=== PATIENT | male | born 1965 | race Caucasian/White ===

== ENCOUNTER 2017-11-13 17:48 | Inpatient (IN) | payer OTHER ==
--- NOTE | 2017-11-13 17:44 | CT ---
EXAMINATION TYPE: CT abdomen pelvis w con DATE OF EXAM: 11/13/2017 COMPARISON: NONE HISTORY: Pelvic pain CT DLP: 2020.1 mGycm Automated exposure control for dose reduction was used. TECHNIQUE: Helical acquisition of images was performed from the lung bases through the pelvis. CONTRAST: Performed with Oral Contrast and with IV Contrast, patient injected with 100 mL of Isovue 300. FINDINGS: Lung bases are clear. There is no pleural effusion. There is no pericardial effusion. There is a small pneumoperitoneum. There is air anterior to the liver. The spleen appears normal. Kelsey er shows no focal defect. Bile ducts are not dilated. Gallbladder appears normal. There is no evidenc e of pancreatic mass. There is no adrenal mass. Kidneys show satisfactory contrast opacification. The re is no hydronephrosis. Appendix appears normal. There is no intestinal wall thickening. There are m ultiple sigmoid diverticula. There is minimal fat stranding around the mid sigmoid colon. The bladder distends smoothly. There is no retroperitoneal adenopathy. There is no pelvic adenopathy. There is p osterior disc herniation at L3-4 with mild encroachment on the spinal canal. There is developmentally adequate canal. IMPRESSION: THERE IS MILD PNEUMOPERITONEUM. THERE IS SIGMOID MODERATE DIVERTICULOSIS THAT COULD BE THE CAUSE OF T HE FREE AIR. THERE IS PROBABLY MILD DIVERTICULITIS. NORMAL APPENDIX. THIS EXAM WAS DISCUSSED WITH DR. Syed AT 5:40 PM.
[2017-11-13] MEDS ORDERED: PIPERACILLIN-TAZOBACTAM 3.375 GM in DEXTROSE/WATER 1 50ML.BAG IVPB STA (18:13)
[2017-11-13] MEDS ORDERED: ONDANSETRON 4 MG/2 ML VIAL IVP STA (18:13)
[2017-11-13] MEDS ORDERED: MORPHINE SULFATE 2 MG/ML SYRINGE IVP STA (18:13)
[2017-11-13] MEDS ORDERED: SODIUM CHLORIDE 0.9% 1,000 ML IV STA (18:13)
[2017-11-13] MEDS ORDERED: ONDANSETRON 4 MG/2 ML VIAL IVP PRN (18:34)
[2017-11-13] MEDS ORDERED: NALOXONE 0.4 MG/ML 1 ML VIAL IV PRN (18:34)
--- NOTE | 2017-11-13 18:38 | ED ---
General Adult HPI - General Chief complaint: Abdominal Pain Time Seen by Provider: 11/13/17 18:04 Source: patient, RN notes reviewed Mode of arrival: wheelchair Limitations: no limitations - History of Present Illness Initial comments: Patient 52-year-old male presented to the emergency room today with chief complaint of lower pain over the last 4 days. Patient's metabolic family doctor who did order an outpatient CT. Patient was transferred by CT to the emergency room for diverticulitis with free air that was found on CT. Patient states pain increased last night. He denies any bites or symptoms. Patient denies any recent fever, chills, shortness of breath, chest pain, back pain, nausea or vomiting, numbness or tingling, dysuria or hematuria, constipation or diarrhea, headaches or visual changes, or any other complaints. - Related Data Home Medications Medication Instructions Recorded Confirmed Atenolol [Tenormin] 25 mg PO BID 11/13/17 11/13/17 traMADol HCL [Ultram] 50 mg PO TID PRN 11/13/17 11/13/17 Allergies Allergy/AdvReac Type Severity Reaction Status Date / Time No Known Allergies Allergy Verified 11/13/17 18:02 Review of Systems ROS Statement: Those systems with pertinent positive or pertinent negative responses have been documented in the HPI. ROS Other: All systems not noted in ROS Statement are negative. Past Medical History Past Medical History: Hypertension History of Any Multi-Drug Resistant Organisms: None Reported Additional Past Surgical History / Comment(s): knee replacement, Inguinal Hernia. Past Psychological History: No Psychological Hx Reported Smoking Status: Light tobacco smoker Past Alcohol Use History: None Reported General Exam - General Exam Comments Initial Comments: General: The patient is awake and alert, in no distress, and does not appear acutely ill. Eye: Pupils are equal, round and reactive to light, extra-ocular movements are intact. No nystagmus. There is normal conjunctiva bilaterally. No signs of icterus. Ears, nose, mouth and throat: There are moist mucous membranes and no oral lesions. Neck: The neck is supple, there is no tenderness or JVD. Cardiovascular: There is a regular rate and rhythm. No murmur, rub or gallop is appreciated. Respiratory: Lungs are clear to auscultation, respirations are non-labored, breath sounds are equal. No wheezes, stridor, rales, or rhonchi. Gastrointestinal: Abdomen soft on palpation. Mild tenderness to left upper and lower quadrants. No rebound tenderness. No guarding. No CVA tenderness. Musculoskeletal: Normal ROM, no tenderness. Strength 5/5. Sensation intact. Neurological: A&O x 3. CN II-XII intact, There are no obvious motor or sensory deficits. Coordination appears grossly intact. Speech is normal. Skin: Skin is warm and dry and no rashes or lesions are noted. Psychiatric: Cooperative, appropriate mood & affect, normal judgment. Limitations: no limitations Course Vital Signs 11/13/17 17:57 Temperature 99.5 F Pulse Rate 70 Respiratory 16 Rate Blood Pressure 185/86 O2 Sat by Pulse 98 Oximetry Medical Decision Making - Medical Decision Making Patient's CT abdomen and pelvis was performed outpatient showing evidence for diverticulitis with a small perforation. Results were discussed with patient. Case discussed with attending physician Dr. Laura did discuss case with physician Dr. Jacob and also surgeon semiconductor technician Dr. baez. Patient started on antibiotics of Zosyn here in the emergency room. will be admitted to the hospital. Patient family are aware the plan. Disposition Clinical Impression: Diverticulitis, Pneumoperitoneum Disposition: ADMITTED IP TO THIS HOSP Condition: Stable Is patient prescribed a controlled substance at d/c from ED?: No Referrals: Pranav Bains DO [Primary Care Provider] - 1-2 days Time of Disposition: 18:45
[2017-11-13 19:01] LABS: Basophils % (A) 0 %; Eosinophils # (A) 0.1 k/uL (0-0.7); Eosinophils % (A) 1 %; HCT 42.7 % (39.0-53.0); Lymphocytes # (A) 1.4 k/uL (1.0-4.8); Lymphocytes % (A) 12 %; MCHC 35.2 g/dL (31.0-37.0); MCV 88.2 fL (80.0-100.0); Mean Platelet Volume 7.4; Monocytes # (A) 0.6 k/uL (0-1.0); Monocytes % (A) 5 %; Neutrophils % (A) 81 %; Platelet Count 171 k/uL (150-450); RBC 4.84 m/uL (4.30-5.90); RDW 13.9 % (11.5-15.5); WBC 11.1 k/uL (3.8-10.6)
[2017-11-13 19:05] LABS: Appearance,Urine Clear (Clear); Bilirubin,Urine Negative (Negative); Blood,Urine Negative (Negative); Color,Urine Colorless; Glucose,Urine (UA) Negative (Negative); Ketones,Urine Negative (Negative); Leukocyte Esterase,Urine Negative (Negative); Nitrite,Urine Negative (Negative); PH, Urine 6.5 (5.0-8.0); Protein,Urine Negative (Negative); Specific Gravity,Urine 1.039 (1.001-1.035); Urobilinogen,Urine <2.0 mg/dL (<2.0)
[2017-11-13 19:10] LABS: ALT 43 U/L (21-72); AST 24 U/L (17-59); Albumin 4.3 g/dL (3.5-5.0); Alkaline Phosphatase 56 U/L (38-126); Anion Gap 11 mmol/L; Blood Urea Nitrogen 15 mg/dL (9-20); Calcium 9.5 mg/dL (8.4-10.2); Carbon Dioxide 24 mmol/L (22-30); Chloride 104 mmol/L (98-107); Glucose 74 mg/dL (74-99); Potassium 4.6 mmol/L (3.5-5.1); Sodium 139 mmol/L (137-145); Total Bilirubin 1.4 mg/dL (0.2-1.3); Total Protein 6.6 g/dL (6.3-8.2)
[2017-11-13 19:20] LABS: INR 1.1 (<1.2); Prothrombin Time 10.7 sec (9.0-12.0)
[2017-11-13] MEDS: MORPHINE SULFATE 2 MG/ML SYRINGE IV PRN ×2 (20:54→23:53)
[2017-11-13] MEDS: ACETAMINOPHEN TAB 325 MG TAB PO PRN (22:24)
[2017-11-13] MEDS: PIPERACILLIN-TAZOBACTAM 3.375 GM in DEXTROSE/WATER 1 50ML.BAG IVPB SCH (23:52)
[2017-11-14] MEDS ORDERED: HYDROcodone/APAP 7.5-325MG 1 EACH TAB ONE (05:00)
[2017-11-14] MEDS ORDERED: MORPHINE SULFATE 2 MG/ML SYRINGE ONE ×2 (05:00→08:50)
[2017-11-14] MEDS ORDERED: ACETAMINOPHEN TAB 325 MG TAB ONE (05:00)
[2017-11-14 08:40] LABS: Basophils % (A) 0 %; Eosinophils # (A) 0.1 k/uL (0-0.7); Eosinophils % (A) 1 %; HCT 43.1 % (39.0-53.0); HGB 14.6 gm/dL (13.0-17.5); Lymphocytes # (A) 1.4 k/uL (1.0-4.8); Lymphocytes % (A) 13 %; MCH 29.7 pg (25.0-35.0); MCHC 33.8 g/dL (31.0-37.0); Mean Platelet Volume 7.5; Monocytes # (A) 0.7 k/uL (0-1.0); Monocytes % (A) 6 %; Neutrophils # (A) 8.6 k/uL (1.3-7.7); Neutrophils % (A) 79 %; Platelet Count 147 k/uL (150-450); RBC 4.89 m/uL (4.30-5.90); RDW 13.8 % (11.5-15.5); WBC 10.9 k/uL (3.8-10.6)
[2017-11-14] MEDS ORDERED: MELOXICAM 7.5 MG TAB ONE (08:50)
[2017-11-14] MEDS ORDERED: amLODIPine 5 MG TAB ONE (08:50)
[2017-11-14] MEDS ORDERED: FUROSEMIDE 40 MG TAB ONE (08:50)
[2017-11-14] MEDS ORDERED: ASPIRIN 325 MG TAB ONE (08:50)
[2017-11-14] MEDS ORDERED: LOSARTAN 25 MG TAB ONE (08:50)
[2017-11-14] MEDS ORDERED: ASCORBIC ACID 500 MG TAB ONE (08:50)
[2017-11-14] MEDS ORDERED: FLUoxetine HCL 20 MG CAP ONE (08:50)
[2017-11-14] MEDS ORDERED: PREGABALIN 75 MG CAP ONE (08:50)
[2017-11-14 09:27] LABS: Albumin 3.9 g/dL (3.5-5.0); Calcium 8.9 mg/dL (8.4-10.2); Potassium 4.3 mmol/L (3.5-5.1); Total Bilirubin 1.8 mg/dL (0.2-1.3); Total Protein 6.1 g/dL (6.3-8.2)
[2017-11-14] MEDS: PIPERACILLIN-TAZOBACTAM 3.375 GM in DEXTROSE/WATER 1 50ML.BAG IVPB SCH ×3 (10:54→23:22)
--- NOTE | 2017-11-14 11:23 | P.GSCN ---
History of Present Illness Consult date: 11/14/17 History of present illness: Was a 52-year-old male presents with a chief complaint of left lower quadrant suprapubic abdominal pain. This began on Sunday. He's never had pain like this before. He denies any fevers or chills. His last bowel movement was 2 days ago and was a normal bowel movement with no blood. He denies any nausea or vomiting. His past surgical history of right inguinal hernia repair. He has high blood pressure but no other medical comorbidities. He's never had a colonoscopy before. Past Medical History Past Medical History: Hypertension Additional Past Medical History / Comment(s): arthritis, djd History of Any Multi-Drug Resistant Organisms: None Reported Additional Past Surgical History / Comment(s): lt knee replacement, rt Inguinal Hernia. one upper dental implant. Past Anesthesia/Blood Transfusion Reactions: No Reported Reaction Smoking Status: Light tobacco smoker - Past Family History Mother Family Medical History: Asthma, Cancer, COPD, GERD/Reflux, Hypertension Additional Family Medical History / Comment(s): diverticulitis, squamous and melaonoma skin cancers Father Family Medical History: Cancer, Hypertension, Prostate Disorder, Renal Disease Additional Family Medical History / Comment(s): prostate cancer, aaa, heart disease Medications and Allergies Home Medications Medication Instructions Recorded Confirmed Type Atenolol [Tenormin] 25 mg PO BID 11/13/17 11/13/17 History traMADol HCL [Ultram] 50 mg PO TID PRN 11/13/17 11/13/17 History Allergies Allergy/AdvReac Type Severity Reaction Status Date / Time No Known Allergies Allergy Verified 11/13/17 18:02 Surgical - Exam Osteopathic Statement: *. No significant issues noted on an osteopathic structural exam other than those noted in the History and Physical/Consult. Vital Signs Temp Pulse Resp BP Pulse Ox 99.5 F 70 16 185/86 98 11/13/17 17:57 11/13/17 17:57 11/13/17 17:57 11/13/17 17:57 11/13/17 17:57 - General well developed, well nourished, no distress - Neck trachea midline - Respiratory normal expansion, normal respiratory effort - Cardiovascular Rhythm: regular - Abdomen Soft nondistended tender to palpation in the left lower and suprapubic area no rebound no rigidity no guarding - Neurologic normal coordination, normal sensation - Psychiatric oriented to time, oriented to person, oriented to place Results - Labs 11/14/17 06:00 11/13/17 18:48 Abnormal Lab Results - Last 24 Hours (Table) 11/13/17 11/13/17 11/13/17 Range/Units 18:48 18:48 18:48 WBC 11.1 H (3.8-10.6) k/uL Plt Count (150-450) k/uL Neutrophils # 9.0 H (1.3-7.7) k/uL Plasma Lactic Acid Raúl 2.1 H* (0.7-2.0) mmol/L Total Bilirubin 1.4 H (0.2-1.3) mg/dL Ur Specific [place] (1.001-1.035) 11/13/17 11/14/17 Range/Units 18:48 06:00 WBC 10.9 H (3.8-10.6) k/uL Plt Count 147 L (150-450) k/uL Neutrophils # 8.6 H (1.3-7.7) k/uL Plasma Lactic Acid Raúl (0.7-2.0) mmol/L Total Bilirubin (0.2-1.3) mg/dL Ur Specific [place] 1.039 H (1.001-1.035) Microbiology - Last 24 Hours (Table) 11/13/17 18:48 Urine Culture - Preliminary Urine,Clean Catch Diabetes panel 11/13/17 Range/Units 18:48 Sodium 139 (137-145) mmol/L Potassium 4.6 (3.5-5.1) mmol/L Chloride 104 (98-107) mmol/L Carbon Dioxide 24 (22-30) mmol/L BUN 15 (9-20) mg/dL Creatinine 1.00 (0.66-1.25) mg/dL Glucose 74 (74-99) mg/dL Calcium 9.5 (8.4-10.2) mg/dL AST 24 (17-59) U/L ALT 43 (21-72) U/L Alkaline Phosphatase 56 (38-126) U/L Total Protein 6.6 (6.3-8.2) g/dL Albumin 4.3 (3.5-5.0) g/dL Calcium panel 11/13/17 Range/Units 18:48 Calcium 9.5 (8.4-10.2) mg/dL Albumin 4.3 (3.5-5.0) g/dL Pituitary panel 11/13/17 Range/Units 18:48 Sodium 139 (137-145) mmol/L Potassium 4.6 (3.5-5.1) mmol/L Chloride 104 (98-107) mmol/L Carbon Dioxide 24 (22-30) mmol/L BUN 15 (9-20) mg/dL Creatinine 1.00 (0.66-1.25) mg/dL Glucose 74 (74-99) mg/dL Calcium 9.5 (8.4-10.2) mg/dL Adrenal panel 11/13/17 Range/Units 18:48 Sodium 139 (137-145) mmol/L Potassium 4.6 (3.5-5.1) mmol/L Chloride 104 (98-107) mmol/L Carbon Dioxide 24 (22-30) mmol/L BUN 15 (9-20) mg/dL Creatinine 1.00 (0.66-1.25) mg/dL Glucose 74 (74-99) mg/dL Calcium 9.5 (8.4-10.2) mg/dL Total Bilirubin 1.4 H (0.2-1.3) mg/dL AST 24 (17-59) U/L ALT 43 (21-72) U/L Alkaline Phosphatase 56 (38-126) U/L Total Protein 6.6 (6.3-8.2) g/dL Albumin 4.3 (3.5-5.0) g/dL Assessment and Plan Assessment: Diverticulitis Plan: Patient has diverticulitis he did have some free air on the CT scan however he is not peritoneal at this time. Plan will be to continue nothing by mouth, IV antibiotics, and bowel rest. We'll continue to monitor his progress. When his abdominal pain resolves plan will be to start clear liquid diet and advance as tolerated. No plans for surgical intervention at this time. He will need to follow-up with me in 6 weeks for a colonoscopy once the diverticulitis has resolved.
[2017-11-14] MEDS: ACETAMINOPHEN TAB 325 MG TAB PO PRN ×2 (11:58→22:29)
--- NOTE | 2017-11-14 13:27 | P.HPIM ---
History of Present Illness H&P Date: 11/14/17 Chief Complaint: Abdominal pain. This is a 52-year-old male one of Dr. Bains with a previous medical history significant for hypertension and hypertensive cardio vascular disease, history of diverticulosis, patient stated that he was in his usual state of health about a week ago when he developed to have an increased abdominal pain located in the right lower quadrant associated with nausea but no vomiting patient stated that he has been eating hands fall of popcorn is over the last few days along with large amount of strawberries and he ended up going to the emergency department at [facility] yesterday because of severe abdominal pain he had a computed tomography scan that showed significant diverticulitis along with a free air patient does not have any signs of any peritoneal irritation at this point in time. And because of that the patient was started on IV antibiotic he was placed on nothing per mouth was seen in consultation by general surgery was recommended to keep the patient on nothing per mouth and continued IV antibiotic and bowel rest for now follow the patient on regular basis. Review of Systems Constitutional: Denies anorexia, Denies chronic headaches, Denies lethargy, Denies weight gain, Denies weight loss Eyes: denies blurred vision, denies bulging eye, denies decreased vision Ears: deny: decreased hearing Ears, nose, mouth and throat: Denies dysphagia, Denies neck lump Cardiovascular: Reports high blood pressure, Denies chest pain, Denies dyspnea on exertion, Denies phlebitis, Denies rapid heart beat, Denies shortness of breath Respiratory: Denies congestion, Denies cough with sputum, Denies home oxygen, Denies sleep apnea, Denies snoring, Denies wheezing Gastrointestinal: Reports abdominal pain, Reports belching, Reports nausea, Denies excessive gas, Denies heartburn, Denies melena, Denies vomiting Genitourinary: Denies discharge, Denies dysuria, Denies nocturia Musculoskeletal: Denies myalgias Musculoskeletal: absent: ankle pain, ankle stiffness, ankle swelling, elbow pain , elbow stiffness, elbow swelling, foot pain, foot stiffness, foot swelling, hand pain, hand stiffness, hand swelling, hip pain, hip stiffness, hip swelling , knee pain, knee stiffness, knee swelling, shoulder pain, shoulder stiffness, shoulder swelling, wrist pain, wrist stiffness, wrist swelling Integumentary: Denies pruritus, Denies rash Neurological: Denies numbness, Denies weakness Psychiatric: Denies anxiety, Denies depression Endocrine: Denies fatigue, Denies weight change Past Medical History Past Medical History: Hypertension Additional Past Medical History / Comment(s): arthritis, djd History of Any Multi-Drug Resistant Organisms: None Reported Additional Past Surgical History / Comment(s): lt knee replacement, rt Inguinal Hernia. one upper dental implant. Past Anesthesia/Blood Transfusion Reactions: No Reported Reaction Smoking Status: Light tobacco smoker (Patient smokes cigar once in a while about 1 every 2 days.) Past Alcohol Use History: Occasional - Past Family History Mother Family Medical History: Asthma, Cancer, COPD, GERD/Reflux, Hypertension Additional Family Medical History / Comment(s): diverticulitis, squamous and melaonoma skin cancers Father Family Medical History: Cancer, Hypertension, Prostate Disorder, Renal Disease Additional Family Medical History / Comment(s): prostate cancer, aaa, heart disease Sister(s) Family Medical History: No Reported History (Patient has one sister no major medical problems) Son(s) Family Medical History: No Reported History (Patient has 2 sons no major problems) Daughter(s) Family Medical History: No Reported History (Patient has one daughter no major medical problems.) Medications and Allergies Home Medications Medication Instructions Recorded Confirmed Type Atenolol [Tenormin] 25 mg PO BID 11/13/17 11/13/17 History traMADol HCL [Ultram] 50 mg PO TID PRN 11/13/17 11/13/17 History Allergies Allergy/AdvReac Type Severity Reaction Status Date / Time No Known Allergies Allergy Verified 11/13/17 18:02 Physical Exam Vitals: Vital Signs Temp Pulse Pulse Resp BP BP Pulse Ox 11/13/17 23:00 99.5 F 77 20 145/82 97 11/13/17 21:15 99.4 F 11/13/17 20:20 99.8 F H 76 20 152/86 98 11/13/17 20:01 81 18 157/83 97 11/13/17 19:06 98.9 F 80 18 153/82 100 11/13/17 17:57 99.5 F 70 16 185/86 98 Intake and Output 11/13/17 11/14/17 11/14/17 22:59 06:59 14:59 Other: Voiding Method Toilet # Voids 2 Weight 120.202 kg - Constitutional General appearance: average body habitus, mild distress - EENT Eyes: anicteric sclerae, EOMI, PERRLA, no ptosis, no scleral icterus, normal appearance ENT: hearing grossly normal, NA/AT, normal oropharynx, no thrush Ears: bilateral: normal - Neck Neck: no lymphadenopathy, normal ROM, no rigidity, no stridor, no thyromegaly Carotids: bilateral: upstroke normal Thyroid: bilateral: normal size - Respiratory Respiratory: bilateral: diminished, negative: dullness, rales, rhonchi, wheezing , prolonged expiration - Cardiovascular Rhythm: regular Heart sounds: normal: S1, S2 Abnormal Heart Sounds: no systolic murmur, no S3 Gallop, no S4 Gallop - Gastrointestinal General gastrointestinal: normal bowel sounds, soft, tenderness (Right lower quadrant.) - Integumentary Integumentary: normal, normal turgor - Neurologic Neurologic: CNII-XII intact - Musculoskeletal Musculoskeletal: gait normal, strength equal bilaterally - Psychiatric Psychiatric: A&O x's 3, appropriate affect, intact judgment & insight Results CBC & Chem 7: 11/14/17 06:00 11/13/17 18:48 Labs: Abnormal Lab Results - Last 24 Hours (Table) 11/13/17 11/13/17 11/13/17 Range/Units 18:48 18:48 18:48 WBC 11.1 H (3.8-10.6) k/uL Plt Count (150-450) k/uL Neutrophils # 9.0 H (1.3-7.7) k/uL Plasma Lactic Acid Raúl 2.1 H* (0.7-2.0) mmol/L Total Bilirubin 1.4 H (0.2-1.3) mg/dL Ur Specific [place] (1.001-1.035) 11/13/17 11/14/17 Range/Units 18:48 06:00 WBC 10.9 H (3.8-10.6) k/uL Plt Count 147 L (150-450) k/uL Neutrophils # 8.6 H (1.3-7.7) k/uL Plasma Lactic Acid Raúl (0.7-2.0) mmol/L Total Bilirubin (0.2-1.3) mg/dL Ur Specific [place] 1.039 H (1.001-1.035) Microbiology - Last 24 Hours (Table) 11/13/17 18:48 Urine Culture - Preliminary Urine,Clean Catch Thrombosis Risk Factor Assmnt - DVT/VTE Prophylaxis DVT/VTE Prophylaxis: Mechanical Prophylaxis ordered - Choose All That Apply Any of the Below Risk Factors Present?: Yes Each Factor Represents 1 point: Age 41-60 years, Obesity (BMI >25) Other Risk Factors: No Other congenital or acquired thrombophilia - If yes, enter type in comment: No Thrombosis Risk Factor Assessment Total Risk Factor Score: 2 Thrombosis Risk Factor Assessment Level: Low Risk Assessment and Plan Assessment: Assessment and plan: 1. Acute diverticulitis with free air. Continue bowel rest, continue nothing by mouth, continue IV antibiotic in the form of Zosyn 3.375 g IV piggyback every 6 hours, general surgery consultation appreciated, continue to monitor the patient very closely continue morphine for minute gram IV push every 4 hours as needed for pain control. 2. Hypertension and hypertensive cardiovascular disease. Continue patient on atenolol 25 mg orally twice every day. 3. DVT prophylaxis. Lateral knee-high PABOL hose and heparin 5000 units subcutaneously every 12 hours 4. GI prophylaxis. Protonix 40 mg IV push every 24 hours. 5. Admit to inpatient. Estimate a length of stay 2 midnights. 6. Patient is full code.
[2017-11-14] MEDS: MORPHINE SULFATE 2 MG/ML SYRINGE IV PRN ×3 (13:58→23:22)
[2017-11-14] MEDS: HEPARIN SODIUM,PORCINE 5,000 UNIT/ML 1 ML VIAL SQ SCH (21:45)
[2017-11-14] MEDS: ATENOLOL 25 MG TAB PO SCH (21:45)
[2017-11-15 08:03] LABS: Basophils % (A) 0 %; Eosinophils # (A) 0.1 k/uL (0-0.7); Eosinophils % (A) 1 %; HCT 42.4 % (39.0-53.0); HGB 14.7 gm/dL (13.0-17.5); Lymphocytes # (A) 1.1 k/uL (1.0-4.8); Lymphocytes % (A) 12 %; MCH 30.3 pg (25.0-35.0); MCHC 34.6 g/dL (31.0-37.0); MCV 87.5 fL (80.0-100.0); Mean Platelet Volume 7.6; Monocytes # (A) 0.6 k/uL (0-1.0); Monocytes % (A) 7 %; Neutrophils # (A) 7.3 k/uL (1.3-7.7); Neutrophils % (A) 79 %; Platelet Count 155 k/uL (150-450); RBC 4.85 m/uL (4.30-5.90); RDW 13.5 % (11.5-15.5); WBC 9.2 k/uL (3.8-10.6)
[2017-11-15] MEDS: HEPARIN SODIUM,PORCINE 5,000 UNIT/ML 1 ML VIAL SQ SCH ×2 (08:22→21:32)
[2017-11-15] MEDS: ATENOLOL 25 MG TAB PO SCH ×2 (08:22→21:49)
[2017-11-15] MEDS: PANTOPRAZOLE 40 MG/10 ML VIAL IVP SCH (08:22)
[2017-11-15] MEDS: PIPERACILLIN-TAZOBACTAM 3.375 GM in DEXTROSE/WATER 1 50ML.BAG IVPB SCH ×3 (08:22→23:01)
[2017-11-15 08:29] LABS: ALT 29 U/L (21-72); AST 19 U/L (17-59); Albumin 3.8 g/dL (3.5-5.0); Alkaline Phosphatase 51 U/L (38-126); Anion Gap 12 mmol/L; Blood Urea Nitrogen 15 mg/dL (9-20); Calcium 8.9 mg/dL (8.4-10.2); Carbon Dioxide 24 mmol/L (22-30); Chloride 101 mmol/L (98-107); Glucose 86 mg/dL (74-99); Magnesium 2.2 mg/dL (1.6-2.3); Potassium 4.4 mmol/L (3.5-5.1); Sodium 137 mmol/L (137-145); Total Bilirubin 1.7 mg/dL (0.2-1.3)
[2017-11-15] MEDS: MORPHINE SULFATE 2 MG/ML SYRINGE IV PRN ×2 (08:33→19:48)
[2017-11-15] MEDS: ACETAMINOPHEN TAB 325 MG TAB PO PRN ×2 (11:34→21:49)
--- NOTE | 2017-11-15 12:50 | P.PN ---
Subjective This is a 52-year-old male one of Dr. Bains with a previous medical history significant for hypertension and hypertensive cardio vascular disease, history of diverticulosis, patient stated that he was in his usual state of health about a week ago when he developed to have an increased abdominal pain located in the right lower quadrant associated with nausea but no vomiting patient stated that he has been eating hands fall of popcorn over the last few days along with large amount of strawberries and he ended up going to the emergency department at [facility] yesterday because of severe abdominal pain he had a computed tomography scan that showed significant diverticulitis along with a free air patient does not have any signs of any peritoneal irritation at this point in time. And because of that the patient was started on IV antibiotic he was placed on nothing per mouth was seen in consultation by general surgery was recommended to keep the patient on nothing per mouth and continued IV antibiotic and bowel rest for now follow the patient on regular basis. 11/15: Patient evaluated today, he continues on Zosyn. He is nothing by mouth and on bowel rest for now. Repeat abdominal x-ray ordered and is pending. Surgery on consult. Objective - Vital Signs Vital signs: Vital Signs Temp 99.0 F 11/15/17 06:01 Pulse 83 11/15/17 08:00 Resp 18 11/15/17 08:00 BP 159/105 11/15/17 06:01 Pulse Ox 96 11/15/17 06:01 Intake & Output 11/14/17 11/15/17 11/15/17 18:59 06:59 18:59 Intake Total 850 Balance 850 Intake: Intake, IV Titration 850 Amount Piperacillin-Tazobactam 3 50 .375 gm In Dextrose/Water 1 50ml.bag @ 12.5 mls/hr IVPB Q8HR JOSEFINA Rx#: [id number] Sodium Chloride 0.9% 1, 800 000 ml @ 100 mls/hr IV . Q10H STA Rx#:[id number] Other: Voiding Method Toilet Toilet # Voids 2 2 - Exam - Constitutional General appearance: average body habitus, mild distress - EENT Eyes: anicteric sclerae, EOMI, PERRLA, no ptosis, no scleral icterus, normal appearance ENT: hearing grossly normal, NA/AT, normal oropharynx, no thrush Ears: bilateral: normal - Neck Neck: no lymphadenopathy, normal ROM, no rigidity, no stridor, no thyromegaly Carotids: bilateral: upstroke normal Thyroid: bilateral: normal size - Respiratory Respiratory: bilateral: diminished, negative: dullness, rales, rhonchi, wheezing , prolonged expiration - Cardiovascular Rhythm: regular Heart sounds: normal: S1, S2 Abnormal Heart Sounds: no systolic murmur, no S3 Gallop, no S4 Gallop - Gastrointestinal General gastrointestinal: normal bowel sounds, soft, tenderness (Right lower quadrant.) - Integumentary Integumentary: normal, normal turgor - Neurologic Neurologic: CNII-XII intact - Musculoskeletal Musculoskeletal: gait normal, strength equal bilaterally - Psychiatric Psychiatric: A&O x's 3, appropriate affect, intact judgment & insight - Labs CBC & Chem 7: 11/15/17 07:38 11/15/17 07:38 Labs: Abnormal Lab Results - Last 24 Hours (Table) 11/14/17 11/15/17 Range/Units 07:32 07:38 Total Bilirubin 1.8 H 1.7 H (0.2-1.3) mg/dL Total Protein 6.1 L 6.0 L (6.3-8.2) g/dL Microbiology - Last 24 Hours (Table) 11/13/17 18:48 Urine Culture - Final Urine,Clean Catch 11/13/17 18:48 Blood Culture - Preliminary Blood No Growth after 24 hours Assessment and Plan Plan: 1. Acute diverticulitis with free air. Continue bowel rest, continue nothing by mouth, continue IV antibiotic in the form of Zosyn 3.375 g IV piggyback every 6 hours, general surgery consultation appreciated, continue to monitor the patient very closely continue morphine for minute gram IV push every 4 hours as needed for pain control. 2. Hypertension and hypertensive cardiovascular disease. Continue patient on atenolol 25 mg orally twice every day. 3. DVT prophylaxis. Lateral knee-high PABLO hose and heparin 5000 units subcutaneously every 12 hours 4. GI prophylaxis. Protonix 40 mg IV push every 24 hours. 5. Admit to inpatient. Estimate a length of stay 2 midnights. 6. Patient is full code. The above impression and plan of care have been discussed and directed by signing physician. Radha Lozada nurse practitioner acting as scribe for signing physician.
--- NOTE | 2017-11-15 13:16 | XR ---
2 view abdomen HISTORY: Colitis, abdominal pain 2 views of the abdomen submitted on 4 images and correlated to prior CT abdomen pelvis 11/13/2017 There is contrast material throughout the colon. Pneumoperitoneum is present, air is noted beneath th e right hemidiaphragm on upright exam the appendix fills with contrast and is normal. No bowel obstru ction. Diverticular change in the sigmoid colon. IMPRESSION: Pneumoperitoneum, report documented referring clinician notification 11/13/2017 on prior [address] T. Diverticulosis.
--- NOTE | 2017-11-16 08:33 | P.PN ---
<Ximena Valentin - Last Filed: 11/16/17 08:27> Subjective Progress Note Date: 11/16/17 52-year-old male seen and examined. Up ambulating in the room. Patient states abdominal pain has resolved tolerating clear liquid. No labs pending temp this morning 98.4. Temp maxed at 99.9 yesterday abdomen soft nondistended Objective - Vital Signs Vital signs: Vital Signs Temp 98.4 F 11/16/17 06:00 Pulse 72 11/16/17 06:00 Resp 16 11/16/17 06:00 BP 165/90 11/16/17 06:00 Pulse Ox 98 11/16/17 06:00 Intake & Output 11/15/17 11/16/17 11/16/17 18:59 06:59 18:59 Other: Voiding Method Toilet Toilet # Voids 3 2 - Exam Physical exam 52-year-old seen pleasant cooperative states abdominal pain is resolved up ambulating in the room tolerating clear liquids Lungs adequate air movement bilaterally and room air Heart S1-S2 audible regular Abdomen soft nontender nondistended bowel tones present no nausea no vomiting Extremities no edema - Labs CBC & Chem 7: 11/15/17 07:38 11/15/17 07:38 Labs: Abnormal Lab Results - Last 24 Hours (Table) 11/15/17 Range/Units 07:38 Total Bilirubin 1.7 H (0.2-1.3) mg/dL Total Protein 6.0 L (6.3-8.2) g/dL Microbiology - Last 24 Hours (Table) 11/14/17 22:52 Blood Culture - Preliminary Blood No Growth after 24 hours 11/13/17 18:48 Blood Culture - Preliminary Blood No Growth after 48 hours Assessment and Plan Assessment: Impression Present on admission abdominal pain with a CAT scan of the abdomen pelvis showing diverticulitis with some free air Plan Advanced to a full liquid diet Plan on follow-up in 6 weeks for colonoscopy once the diverticulitis has resolved From a surgical perspective is felt to be appropriate to proceed with a discharge today defer to the timing to the attending Dietitian to provide information on the diverticulum diet Augmentin 1 twice a day for 7 days as ordered The above impression and plan of care have been discussed and directed by signing physician. Ximena Valentin nurse practitioner acting as scribe for signing physician. <Harriston,Dewey J - Last Filed: 11/17/17 12:39> Objective - Vital Signs Vital signs: Vital Signs Temp 99.1 F 11/17/17 07:00 Pulse 70 11/17/17 07:00 Resp 18 11/17/17 07:00 BP 175/92 11/17/17 07:00 Pulse Ox 97 11/17/17 07:00 Intake & Output 11/16/17 11/17/17 11/17/17 18:59 06:59 18:59 Intake Total 200 550 Balance 200 550 Weight 120.202 kg 120.202 kg Intake: Oral 200 550 Other: Voiding Method Toilet # Voids 2 1 # Bowel Movements 4 - Labs CBC & Chem 7: 11/17/17 07:48 11/17/17 07:48 Labs: Microbiology - Last 24 Hours (Table) 11/14/17 22:52 Blood Culture - Preliminary Blood No Growth after 48 hours 11/13/17 18:48 Blood Culture - Preliminary Blood No Growth after 72 hours
[2017-11-16] MEDS: PIPERACILLIN-TAZOBACTAM 3.375 GM in DEXTROSE/WATER 1 50ML.BAG IVPB SCH ×3 (09:20→23:20)
[2017-11-16] MEDS: ATENOLOL 25 MG TAB PO SCH ×2 (09:21→20:45)
[2017-11-16] MEDS: HEPARIN SODIUM,PORCINE 5,000 UNIT/ML 1 ML VIAL SQ SCH ×2 (09:21→20:46)
[2017-11-16] MEDS: PANTOPRAZOLE 40 MG/10 ML VIAL IVP SCH (09:21)
[2017-11-16 11:03] VITALS: BMI 36.9
--- NOTE | 2017-11-16 12:20 | P.PN ---
Subjective Progress Note Date: 11/16/17 This is a 52-year-old male one of Dr. Bains with a previous medical history significant for hypertension and hypertensive cardio vascular disease, history of diverticulosis, patient stated that he was in his usual state of health about a week ago when he developed to have an increased abdominal pain located in the right lower quadrant associated with nausea but no vomiting patient stated that he has been eating hands fall of popcorn over the last few days along with large amount of strawberries and he ended up going to the emergency department at [facility] yesterday because of severe abdominal pain he had a computed tomography scan that showed significant diverticulitis along with a free air patient does not have any signs of any peritoneal irritation at this point in time. And because of that the patient was started on IV antibiotic he was placed on nothing per mouth was seen in consultation by general surgery was recommended to keep the patient on nothing per mouth and continued IV antibiotic and bowel rest for now follow the patient on regular basis. 11/15: Patient evaluated today, he continues on Zosyn. He is nothing by mouth and on bowel rest for now. Repeat abdominal x-ray ordered and is pending. Surgery on consult. 11/16: Doing better today had an x-ray yesterday still showing pneumoperitoneum, has no peritoneal sign he has no nausea or vomiting tolerating clear liquid while he would be advanced to full liquid diet hopefully we'll switch to soft diet tomorrow morning. Objective - Vital Signs Vital signs: Vital Signs Temp 98.4 F 11/16/17 06:00 Pulse 72 11/16/17 06:00 Resp 16 11/16/17 06:00 BP 165/90 11/16/17 06:00 Pulse Ox 98 11/16/17 06:00 Intake & Output 11/15/17 11/16/17 11/16/17 18:59 06:59 18:59 Other: Voiding Method Toilet Toilet # Voids 3 2 - Exam - Exam - Constitutional General appearance: average body habitus, mild distress - EENT Eyes: anicteric sclerae, EOMI, PERRLA, no ptosis, no scleral icterus, normal appearance ENT: hearing grossly normal, NA/AT, normal oropharynx, no thrush Ears: bilateral: normal - Neck Neck: no lymphadenopathy, normal ROM, no rigidity, no stridor, no thyromegaly Carotids: bilateral: upstroke normal Thyroid: bilateral: normal size - Respiratory Respiratory: bilateral: diminished, negative: dullness, rales, rhonchi, wheezing , prolonged expiration - Cardiovascular Rhythm: regular Heart sounds: normal: S1, S2 Abnormal Heart Sounds: no systolic murmur, no S3 Gallop, no S4 Gallop - Gastrointestinal General gastrointestinal: normal bowel sounds, soft, tenderness (Right lower quadrant.) - Integumentary Integumentary: normal, normal turgor - Neurologic Neurologic: CNII-XII intact - Musculoskeletal Musculoskeletal: gait normal, strength equal bilaterally - Psychiatric Psychiatric: A&O x's 3, appropriate affect, intact judgment & insight - Labs CBC & Chem 7: 11/15/17 07:38 11/15/17 07:38 Labs: Microbiology - Last 24 Hours (Table) 11/14/17 22:52 Blood Culture - Preliminary Blood No Growth after 24 hours 11/13/17 18:48 Blood Culture - Preliminary Blood No Growth after 48 hours Assessment and Plan Assessment: Assessment and Plan Plan: 1. Acute diverticulitis with free air. Continue clear liquids made have full liquid, continue IV antibiotic in the form of Zosyn 3.375 g IV piggyback every 6 hours, general surgery consultation appreciated, continue to monitor the patient very closely continue morphine for minute gram IV push every 4 hours as needed for pain control. 2. Hypertension and hypertensive cardiovascular disease. Continue patient on atenolol 25 mg orally twice every day. 3. DVT prophylaxis. Lateral knee-high PABLO hose and heparin 5000 units subcutaneously every 12 hours 4. GI prophylaxis. Protonix 40 mg IV push every 24 hours. 5. Advanced to full liquid diet today and increase ambulation.
[2017-11-17] MEDS: HEPARIN SODIUM,PORCINE 5,000 UNIT/ML 1 ML VIAL SQ SCH (08:05)
[2017-11-17] MEDS: ATENOLOL 25 MG TAB PO SCH (08:05)
[2017-11-17] MEDS: PANTOPRAZOLE 40 MG/10 ML VIAL IVP SCH (08:06)
[2017-11-17 08:16] LABS: Basophils # (A) 0.1 k/uL (0-0.2); Basophils % (A) 1 %; Eosinophils # (A) 0.2 k/uL (0-0.7); Eosinophils % (A) 2 %; HCT 42.1 % (39.0-53.0); HGB 14.4 gm/dL (13.0-17.5); Lymphocytes # (A) 1.5 k/uL (1.0-4.8); Lymphocytes % (A) 17 %; MCH 29.4 pg (25.0-35.0); MCHC 34.1 g/dL (31.0-37.0); MCV 86.2 fL (80.0-100.0); Mean Platelet Volume 7.1; Monocytes # (A) 0.7 k/uL (0-1.0); Monocytes % (A) 8 %; Neutrophils # (A) 6.2 k/uL (1.3-7.7); Neutrophils % (A) 71 %; Platelet Count 232 k/uL (150-450); RBC 4.89 m/uL (4.30-5.90); RDW 13.5 % (11.5-15.5); WBC 8.7 k/uL (3.8-10.6)
[2017-11-17 08:28] LABS: Albumin 3.9 g/dL (3.5-5.0); Calcium 9.3 mg/dL (8.4-10.2); Total Bilirubin 0.8 mg/dL (0.2-1.3); Total Protein 6.3 g/dL (6.3-8.2)
[2017-11-17] MEDS: PIPERACILLIN-TAZOBACTAM 3.375 GM in DEXTROSE/WATER 1 50ML.BAG IVPB SCH ×2 (09:09→15:04)
[2017-11-17 15:51] VITALS: BP 161/94; PULSE 69; RESP 19; TEMP 98.2
--- NOTE | 2017-11-17 17:26 | P.DS ---
Providers Date of admission: 11/13/17 19:45 Attending physician: Jayson Jacob Consults: 11/13/17 18:34 Consult Physician Stat Consulting Provider: Dewey Pina Consult Reason/Comments: Diverticulitis Do you want consulting provider notified?: Yes Primary care physician: Pranav Bains [facility] Hospital Course: This is a 52-year-old male one of Dr. Bains with a previous medical history significant for hypertension and hypertensive cardio vascular disease, history of diverticulosis, patient stated that he was in his usual state of health about a week ago when he developed to have an increased abdominal pain located in the right lower quadrant associated with nausea but no vomiting patient stated that he has been eating hands fall of popcorn over the last few days along with large amount of strawberries and he ended up going to the emergency department at [facility] yesterday because of severe abdominal pain he had a computed tomography scan that showed significant diverticulitis along with a free air patient does not have any signs of any peritoneal irritation at this point in time. And because of that the patient was started on IV antibiotic he was placed on nothing per mouth was seen in consultation by general surgery was recommended to keep the patient on nothing per mouth and continued IV antibiotic and bowel rest for now follow the patient on regular basis. 11/15: Patient evaluated today, he continues on Zosyn. He is nothing by mouth and on bowel rest for now. Repeat abdominal x-ray ordered and is pending. Surgery on consult. 11/16: Doing better today had an x-ray yesterday still showing pneumoperitoneum, has no peritoneal sign he has no nausea or vomiting tolerating clear liquid while he would be advanced to full liquid diet hopefully we'll switch to soft diet tomorrow morning. 11/17: Patient's doing great today, without any abdominal pain and no abdominal distention, no nausea vomiting, diet has been accepted without any difficulties , diabetes been advanced to soft diverticular diet, patient has been cleared for discharge today with Augmentin to finish an outpatient colonoscopy in 6 weeks. Patient Condition at Discharge: Stable Plan - Discharge Summary Discharge Rx Participant: Yes New Discharge Prescriptions: New Amoxicillin/Potassium Clav [Augmentin 875-125 Tablet] 1 tab PO Q12HR #14 tab No Action traMADol HCL [Ultram] 50 mg PO TID PRN PRN Reason: Pain Atenolol [Tenormin] 25 mg PO BID Discharge Medication List Atenolol [Tenormin] 25 mg PO BID 11/13/17 [History] traMADol HCL [Ultram] 50 mg PO TID PRN 11/13/17 [History] Amoxicillin/Potassium Clav [Augmentin 875-125 Tablet] 1 tab PO Q12HR #14 tab [Rx] Follow up Appointment(s)/Referral(s): Dewey Pina DO [Doctor of Osteopathic Medicine] - 6 Weeks (Call to schedule out patient colonoscopy.) Pranav Bains DO [Primary Care Provider] - 1-2 days Patient Instructions/Handouts: Diverticulitis (GEN), Diverticulitis Diet (DC), Perforated Bowel (GEN) Activity/Diet/Wound Care/Special Instructions: Activity as tolerated soft or full liq diet as tolerated Discharge Disposition: HOME SELF-CARE
== END 2017-11-17 16:26 | disposition home or self-care (01) | DRG 392 ==
LOC: EC 17:48 → 4MS4W 19:45
PROVIDERS: ADMIT Internal Medicine; ATTEND Internal Medicine
DX: K57.20 Diverticulitis of large intestine with perforation and abscess without bleeding (principal); I11.9 Hypertensive heart disease without heart failure; F17.290 Nicotine dependence, other tobacco product, uncomplicated; Z96.652 Presence of left artificial knee joint; Z80.42 Family history of malignant neoplasm of prostate; Z80.8 Family history of malignant neoplasm of other organs or systems; Z82.49 Family history of ischemic heart disease and other diseases of the circulatory system; Z82.5 Family history of asthma and other chronic lower respiratory diseases; Z79.899 Other long term (current) drug therapy
CPT/HCPCS: 36415; 74019; 74177; 80053; 81003; 83605; 83735; 85025; 85610; 85730; 87040; 87086; 87324; 96365; 96375; 99285

== ENCOUNTER → 2018-09-25 | Outpatient (CLI) | payer OTHER ==
--- NOTE | 2018-09-25 12:43 | CONS ---
CONSULTATION DATE OF SERVICE: 09/25/2018 A 53-year-old gentleman has been evaluated in the sleep center for possible obstructive sleep apnea-hypopnea syndrome. HISTORY OF PRESENT ILLNESS/SLEEP WAKE EVALUATION: Patient usual sleep schedule on working days from 10 p.m. to 6:30 a.m. on weekends from around 11 and 12 midnight until 8 or 9 a.m. No problems with falling asleep. No TV in bedroom. The patient usually sleeps on the stomach position. According to his , he has loud snoring and witnessed episodes of stopped breathing during the sleep. He wakes up from sleep up to 4 times with nocturia. He has episodes of grinding teeth and restless legs. During the day, he usually does not take any naps. Hopkins Sleepiness Scale although increased to 11. PAST MEDICAL HISTORY: Positive for hypertension. MEDICATIONS: Atenolol. PAST SURGICAL HISTORY: Total left knee replacement in 2018. Hernia repair surgery in 2007. SOCIAL HISTORY: Positive for occasional smoking cigarettes. Alcohol consumption occasional. FAMILY HISTORY: Hypertension, heart problems, arthritis, asthma, sleep apnea, acid reflux, thyroid problems, skin cancer. REVIEW OF SYSTEMS: Multiple awakenings from sleep, sleepiness during the day. PHYSICAL EXAMINATION: During physical exam, gentleman without distress. VITAL SIGNS: BP 122/81, HR 68, RR 16, height 5 feet 11 inches, weight 285 pounds, body mass index 39.7, temperature 98.6, oxygen saturation at room air 97%. HEENT: PERRLA, EOMI. Oropharynx extremely low position of soft palate. Mallampati 4. Restriction of nasal breathing on the left side. NECK: Supple, no JVD. Thyroid is not palpable. Wide neck 17 inches. LUNGS: Clear to percussion and to auscultation. Good air exchange. No wheezing or rhonchi. HEART: S1, S2 regular. No murmurs, gallops, or rubs. ABDOMEN: Soft and nontender. Bowel sounds are present. No organomegaly appreciated. EXTREMITIES: No clubbing or cyanosis. CRUSHER LOADER EQUIPMENT OPERATOR: Awake, alert, and oriented X3. Cranial nerves 2 to 7 intact. There is no fasciculation or atrophy. noted. No focal deficits observed. IMPRESSION: 1. Loud snoring, witnessed episodes of stopped breathing during the sleep, extremely low position of soft palate, Mallampati 4, wide neck, sleepiness. Hopkins Sleepiness Scale increased to 11, obstructive sleep apnea-hypopnea syndrome. 2. Obesity, body mass index 39.7. 3. Hypertension. 4. Status post left knee replacement. 5. Status post hernia repair. PLAN: 1. Polysomnography for evaluation of patient's breathing during sleep. 2. CPAP/BiPAP titration if sleep study confirms obstructive sleep apnea-hypopnea syndrome. 3. Preferable position during sleep on the side. 4. No driving if patient feels any sleepiness. 5. I will see patient for follow up visit to explain results of testing and following plan. Thank you very much for referring this patient for consultation. Sincerely. Timothy Norwood MD, PhD, FAASM Diplomat of [employer] Talent Development Director of [facility] [place] BENEDICT / BRADENN: [id number] /
== END | disposition home or self-care (01) ==
LOC: SLEEP 11:19
PROVIDERS: ATTEND Internal Medicine
DX: G47.33 Obstructive sleep apnea (adult) (pediatric) (principal); E66.9 Obesity, unspecified; I10 Essential (primary) hypertension; F17.210 Nicotine dependence, cigarettes, uncomplicated; Z68.39 Body mass index [BMI] 39.0-39.9, adult; Z96.652 Presence of left artificial knee joint; Z98.890 Other specified postprocedural states; Z79.899 Other long term (current) drug therapy
CPT/HCPCS: 99211

== ENCOUNTER → 2019-04-03 | Outpatient (CLI) | payer OTHER ==
--- NOTE | 2019-04-03 18:25 | PN ---
PROGRESS NOTE DATE OF SERVICE: 04/03/2019 This patient is a 53-year-old gentleman who has been followed in Sleep Center for treatment of obstructive sleep apnea-hypopnea syndrome. Recently the patient had a diagnostic sleep study and then CPAP titration. During titration, his respiration was normalized. Subsequently he received a CPAP unit and started to use it. The patient is able to use CPAP equipment every night. Today is his first visit after he started to use CPAP equipment. He feels some discomfort related to the size of his nasal mask. I checked his CPAP unit. CPAP pressure is 9 cm of water. Usage is 100% of nights and 29/30 nights for more than 4 hours with average usage 7.8 hours per night, which is a normal amount of hours. Leak is only 6 L/minute, which is good. Apnea-hypopnea index is only 0.3, which is absolutely perfect. Cou[place] Sleepiness Scale today is 3. MEDICATIONS: Atenolol. PHYSICAL EXAMINATION: GENERAL: A pleasant patient in no distress. VITAL SIGNS: BP 153/88, HR 66, RR 16, weight 291 pounds, temperature 99.0, oxygen saturation at room air 98%. HEENT: PERRLA, EOMI. Evaluation of oropharynx showed tongue protrudes midline. Extremely low position of soft palate. Mallampati IV. NECK: Supple. No JVD. Thyroid is not palpable. LUNGS: Clear to percussion and to auscultation. Good air exchange. No wheezing or rhonchi. HEART: S1, S2 regular. No murmurs, gallops or rubs. ABDOMEN: Slightly obese. EXTREMITIES: No clubbing or cyanosis. ENROLLMENT NURSE: Awake, alert, and oriented X3. Cranial nerves 2 to 7 intact. There is no fasciculation or atrophy. noted. No focal deficits observed. IMPRESSION: 1. Obstructive sleep apnea-hypopnea syndrome. Patient demonstrated great compliance with treatment, benefitting from treatment. 2. Obesity. 3. Hypertension. 4. Status post left knee replacement. 5. Status post hernia repair. PLAN: 1. Patient will continue to use CPAP equipment every night for the whole night. 2. Losing weight. 3. Sleep hygiene with regular time in bed for at least 7-1/2 to 8 hours. 4. No driving if feeling any sleepiness. 5. I will maintain all necessary CPAP prescriptions for mask, tube, filters. 6. We fitted the patient with a different style of nasal mask, which is an AirFit N20 medium size. The patient will continue to use CPAP equipment with this type of mask. 7. Follow-up visit in 10 months, or earlier if patient has any problems. Thank you very much for allowing me to participate in the management of your patient. Sincerely, Timothy Norwood MD, PhD, FAASM Diplomat of [place] [employer] [place] [employer] Journeyman Mechanic of [facility] [place] MMODL / IJN: [id number] /
== END ==
LOC: SLEEP 16:42
PROVIDERS: ATTEND Internal Medicine
DX: G47.33 Obstructive sleep apnea (adult) (pediatric) (principal); E66.9 Obesity, unspecified; I10 Essential (primary) hypertension; Z96.652 Presence of left artificial knee joint; Z98.890 Other specified postprocedural states; Z99.89 Dependence on other enabling machines and devices; Z79.899 Other long term (current) drug therapy

== ENCOUNTER → 2022-04-14 | Outpatient (CLI) | payer BC | END | disposition home or self-care (01) | LOC: LABWHC1 09:29 | PROVIDERS: ATTEND Family Medicine | DX: Z01.818 Encounter for other preprocedural examination (principal); R00.1 Bradycardia, unspecified | CPT/HCPCS: 36415; 93005 ==

== ENCOUNTER → 2022-09-06 | Outpatient (CLI) | payer BC ==
[2022-09-06 11:00] LABS: African American GFR (CKD) 69.2 (60.0-200.0); Albumin 4.3 g/dL (3.8-4.9); Albumin/Globulin Ratio 2.39 (1.60-3.17); Anion Gap 7.1 mmol/L (10.00-18.00); BUN/Creat Ratio 13.23 Ratio (12.00-20.00); Blood Urea Nitrogen 17.2 mg/dL (9.0-27.0); Calcium 9.6 mg/dL (8.7-10.3); Carbon Dioxide 26.9 mmol/L (20.0-27.5); Globulin 1.8 g/dL (1.6-3.3); Non-African American GFR(CKD) 59.7 (60.0-200.0); Potassium 4.6 mmol/L (3.5-5.5); Total Bilirubin 0.7 mg/dL (0.30-1.20); Total Protein 6.1 g/dL (6.2-8.2)
== END | disposition home or self-care (01) ==
LOC: LABWHC1 07:34
PROVIDERS: ATTEND Family Medicine
DX: R22.43 Localized swelling, mass and lump, lower limb, bilateral (principal); R73.9 Hyperglycemia, unspecified
CPT/HCPCS: 36415; 80053; 83036; 83880; 85379

== ENCOUNTER 2022-12-12 14:06 | Observation (INO) | payer BC ==
[2022-12-12] MEDS ORDERED: SODIUM CHLORIDE 0.9% 500 ML 500 ML IV STA (14:36)
--- NOTE | 2022-12-12 14:59 | ED ---
General Adult HPI - General Chief complaint: Syncope Stated complaint: Syncope Time Seen by Provider: 12/12/22 14:06 Source: patient, RN notes reviewed, old records reviewed Mode of arrival: EMS - History of Present Illness Initial comments: this is a 57-year-old male who presents emergency Department stating he was in the store and he got lightheaded and the next thing he knows he was on the floor when he woke up people are all. Patient states she has a history of high blood pressure is no history of any irregular heartbeat or atrial fibrillation. Patient states he has no chest pain difficult breathing shortest breath. Patient states he did hit the back of his head but is not on any blood thinners. Patient states he has no headache. Patient denies any neck pain. Patient states he has a little bit of jaw pain but he has full range of motion of his jaw. Patient denies any neck pain chest pain or abdominal pain. Patient denies any specific extremity pain. Patient currently feels at his baseline. - Related Data Home Medications Medication Instructions Recorded Confirmed atenoloL [Tenormin] 25 mg PO BID 11/13/17 11/13/17 traMADol HCL [Ultram] 50 mg PO TID PRN 11/13/17 11/13/17 Previous Rx's Medication Instructions Recorded Amoxicillin/Potassium Clav 1 tab PO Q12HR #14 tab 11/16/17 [Augmentin 875-125 Tablet] Allergies Allergy/AdvReac Type Severity Reaction Status Date / Time No Known Allergies Allergy Verified 12/12/22 14:14 Review of Systems ROS Statement: Those systems with pertinent positive or pertinent negative responses have been documented in the HPI. ROS Other: All systems not noted in ROS Statement are negative. Past Medical History Past Medical History: Hypertension Additional Past Medical History / Comment(s): arthritis, djd History of Any Multi-Drug Resistant Organisms: None Reported Additional Past Surgical History / Comment(s): lt partial knee& complete right replacement, rt Inguinal Hernia. one upper dental implant. Past Anesthesia/Blood Transfusion Reactions: No Reported Reaction Past Psychological History: No Psychological Hx Reported Smoking Status: Light tobacco smoker Past Alcohol Use History: Occasional Past Drug Use History: None Reported - Past Family History Mother Family Medical History: Asthma, Cancer, COPD, GERD/Reflux, Hypertension Additional Family Medical History / Comment(s): diverticulitis, squamous and melaonoma skin cancers Father Family Medical History: Cancer, Hypertension, Prostate Disorder, Renal Disease Additional Family Medical History / Comment(s): prostate cancer, aaa, heart disease Sister(s) Family Medical History: No Reported History (Patient has one sister no major medical problems) Son(s) Family Medical History: No Reported History (Patient has 2 sons no major problems) Daughter(s) Family Medical History: No Reported History (Patient has one daughter no major medical problems.) General Exam - General Exam Comments Initial Comments: GENERAL: Patient is well-developed and well-nourished. Patient is nontoxic and well- hydrated and is in mild distress. ENT: Neck is soft and supple. No significant lymphadenopathy is noted. Oropharynx is clear. Moist mucous membranes. Neck has full range of motion without eliciting any pain. EYES: The sclera were anicteric and conjunctiva were pink and moist. Extraocular movements were intact and pupils were equal round and reactive to light. Eyelids were unremarkable. PULMONARY: Unlabored respirations. Good breath sounds bilaterally. No audible rales rhonchi or wheezing was noted. CARDIOVASCULAR: Patient has no irregular heartbeat at about 80 beats a minute ABDOMEN: Soft and nontender with normal bowel sounds. SKIN: Skin is clear with no lesions or rashes and otherwise unremarkable. NEUROLOGIC: Patient is alert and oriented x3. Cranial nerves II through XII are grossly intact. Motor and sensory are also intact. Normal speech, volume and content. Symmetrical smile. MUSCULOSKELETAL: Normal extremities with adequate strength and full range of motion. LYMPHATICS: No significant lymphadenopathy is noted PSYCHIATRIC: Normal psychiatric evaluation. Course Vital Signs 12/12/22 12/12/22 12/12/22 14:10 14:16 14:30 Temperature 97.9 F Pulse Rate 72 80 74 Respiratory 18 18 18 Rate Blood Pressure 147/66 145/76 O2 Sat by Pulse 99 93 L 96 Oximetry 12/12/22 12/12/22 12/12/22 15:00 15:33 16:00 Temperature Pulse Rate 71 75 70 Respiratory 18 13 17 Rate Blood Pressure 149/80 142/78 140/80 O2 Sat by Pulse 94 L 97 Oximetry 12/12/22 12/12/22 16:30 17:00 Temperature Pulse Rate 68 58 L Respiratory 18 18 Rate Blood Pressure 138/78 138/76 O2 Sat by Pulse 96 97 Oximetry Medical Decision Making - Medical Decision Making EKG as interpreted by myself EKG shows atrial fibrillation at 80 bpm QRS is under 20 QT interval 36 QTC is 422 per patient's EKG shows no ST segment elevation or depression. Was pt. sent in by a medical professional or institution (ISELA Gamez, HYDRAMATIC SPECIALIST, urgent care, hospital, or fci...) When possible be specific @ -No Did you speak to anyone other than the patient for history (EMS, parent, family, police, friend...)? What history was obtained from this source @ -No Did you review nursing and triage notes (agree or disagree)? Why? @ -I reviewed and agree with nursing and triage notes Were old charts reviewed (outside hosp., previous admission, EMS record, old EKG, old radiological studies, urgent care reports/EKG's, fci records)? Report findings @ -EMS brought the patient and gave all the history because the patient did not remember because he was unconscious Differential Diagnosis (chest pain, altered mental status, abdominal pain women, abdominal pain men, vaginal bleeding, weakness, fever, dyspnea, syncope, headache, dizziness, GI bleed, back pain, seizure, CVA, palpatations, mental he alth, musculoskeletal)? @ -Differential Syncope: Valvular disease, hypertrophic cardiomyopathy, pulmonary embolism, tamponade, tachycardia, bradycardia, HI, hypovolemia, hemorrhage, dissection, anemia, intracranial hemorrhage, seizure, hypoglycemia, carbon monoxide poisoning, this is not meant to be an all-inclusive list. EKG interpreted by me (3pts min.). @ -As above X-rays interpreted by me (1pt min.). @ -Chest x-ray showed no acute abnormality. CT interpreted by me (1pt min.). @ -CT of the brain and C-spine showed no acute abnormality U/S interpreted by me (1pt. min.). @ -None done What testing was considered but not performed or refused? (CT, X-rays, U/S, labs)? Why? @ -None What meds were considered but not given or refused? Why? @ -None Did you discuss the management of the patient with other professionals (denise hurtado i.e. ISELA Gamez, HYDRAMATIC SPECIALIST, lab, RT, psych nurse, social science manager, ship unloader, teacher, supervisor dog license officer, employment case manager)? Give summary @ -I spoke with Dr. Beasley he agreed to admit the patient Was smoking cessation discussed for >3mins.? @ -No Was critical care preformed (if so, how long)? @ -35 minutes Were there social determinants of health that impacted care today? How? (Homelessness, low income, unemployed, alcoholism, drug addiction, transportation, low edu. Level, literacy, decrease access to med. care, [facility], rehab)? @ -No Was there de-escalation of care discussed even if they declined (Discuss DNR or withdrawal of care, Hospice)? DNR status @ -No What co-morbidities impacted this encounter? (DM, HTN, Smoking, COPD, CAD, Cancer, CVA, ARF, Chemo, Hep., AIDS, mental health diagnosis, sleep apnea, morbid obesity)? @ -None Was patient admitted / discharged? Hospital course, mention meds given and route, prescriptions, significant lab abnormalities, going to OR and other pertinent info. @ -Lab work showed no acute abnormality. Patient's CT of the brain and C-spine showed no acute abnormality. Patient's chest x-ray showed no acute abnormality. Patient's heart rate remained under 100 and route the duration of the patient's stay I did start the patient on heparin I consulted cardiology neuro per Dr. Beasley's request Undiagnosed new problem with uncertain prognosis? @ -No Drug Therapy requiring intensive monitoring for toxicity (Heparin, Nitro, Insulin, Cardizem)? @ -No Were any procedures done? @ -No Diagnosis/symptom? @ -New onset A. fib Acute, or Chronic, or Acute on Chronic? @ -Acute Uncomplicated (without systemic symptoms) or Complicated (systemic symptoms)? @ -Complicated Side effects of treatment? @ -No Exacerbation, Progression, or Severe Exacerbation? @ -No Poses a threat to life or bodily function? How? (Chest pain, USA, HI, pneumonia, PE, COPD, DKA, ARF, appy, cholecystitis, CVA, Diverticulitis, Homicidal, Suicidal, threat to staff... and all critical care pts) @ -Yes this can lead to syncope and increased more. Diagnosis/symptom? @ -Syncope Acute, or Chronic, or Acute on Chronic? @ -Acute Uncomplicated (without systemic symptoms) or Complicated (systemic symptoms)? @ -Complicated Side effects of treatment? @ -none Exacerbation, Progression, or Severe Exacerbation] @ -no Poses a threat to life or bodily function? @ -no - Lab Data Result diagrams: 12/12/22 14:54 12/12/22 14:54 Lab Results 12/12/22 12/12/22 12/12/22 Range/Units 14:54 14:54 14:54 WBC 9.7 (3.8-10.6) k/uL RBC 5.26 (4.30-5.90) m/uL Hgb 16.0 (13.0-17.5) gm/dL Hct 46.5 (39.0-53.0) % MCV 88.4 (80.0-100.0) fL MCH 30.4 (25.0-35.0) pg MCHC 34.4 (31.0-37.0) g/dL RDW 13.8 (11.5-15.5) % Plt Count 145 L (150-450) k/uL MPV 8.4 Neutrophils % 75 % Lymphocytes % 17 % Monocytes % 5 % Eosinophils % 1 % Basophils % 1 % Neutrophils # 7.3 (1.3-7.7) k/uL Lymphocytes # 1.7 (1.0-4.8) k/uL Monocytes # 0.5 (0-1.0) k/uL Eosinophils # 0.1 (0-0.7) k/uL Basophils # 0.1 (0-0.2) k/uL PT 10.7 (9.0-12.0) sec INR 1.0 (<1.2) APTT 24.7 (22.0-30.0) sec Sodium (137-145) mmol/L Potassium (3.5-5.1) mmol/L Chloride (98-107) mmol/L Carbon Dioxide (22-30) mmol/L Anion Gap mmol/L BUN (9-20) mg/dL Creatinine (0.66-1.25) mg/dL Est GFR (CKD-EPI)AfAm (>60 ml/min/1.73 sqM) Est GFR (CKD-EPI)NonAf (>60 ml/min/1.73 sqM) Glucose (74-99) mg/dL Calcium (8.4-10.2) mg/dL Magnesium (1.6-2.3) mg/dL Total Bilirubin (0.2-1.3) mg/dL AST (17-59) U/L ALT (4-49) U/L Alkaline Phosphatase (38-126) U/L Troponin I (0.000-0.034) ng/mL Total Protein (6.3-8.2) g/dL Albumin (3.5-5.0) g/dL TSH (0.465-4.680) mIU/L Urine Opiates Screen Not Detected (NotDetected) Ur Oxycodone Screen Not Detected (NotDetected) Urine Methadone Screen Not Detected (NotDetected) Ur Propoxyphene Screen Not Detected (NotDetected) Ur Barbiturates Screen Not Detected (NotDetected) U Tricyclic Antidepress Not Detected (NotDetected) Ur Phencyclidine Scrn Not Detected (NotDetected) Ur Amphetamines Screen Not Detected (NotDetected) U Methamphetamines Scrn Not Detected (NotDetected) U Benzodiazepines Scrn Not Detected (NotDetected) Urine Cocaine Screen Not Detected (NotDetected) U Marijuana (THC) Screen Not Detected (NotDetected) 12/12/22 12/12/22 Range/Units 14:54 14:54 WBC (3.8-10.6) k/uL RBC (4.30-5.90) m/uL Hgb (13.0-17.5) gm/dL Hct (39.0-53.0) % MCV (80.0-100.0) fL MCH (25.0-35.0) pg MCHC (31.0-37.0) g/dL RDW (11.5-15.5) % Plt Count (150-450) k/uL MPV Neutrophils % % Lymphocytes % % Monocytes % % Eosinophils % % Basophils % % Neutrophils # (1.3-7.7) k/uL Lymphocytes # (1.0-4.8) k/uL Monocytes # (0-1.0) k/uL Eosinophils # (0-0.7) k/uL Basophils # (0-0.2) k/uL PT (9.0-12.0) sec INR (<1.2) APTT (22.0-30.0) sec Sodium 139 (137-145) mmol/L Potassium 3.8 (3.5-5.1) mmol/L Chloride 103 (98-107) mmol/L Carbon Dioxide 26 (22-30) mmol/L Anion Gap 10 mmol/L BUN 14 (9-20) mg/dL Creatinine 0.98 (0.66-1.25) mg/dL Est GFR (CKD-EPI)AfAm >90 (>60 ml/min/1.73 sqM) Est GFR (CKD-EPI)NonAf 85 (>60 ml/min/1.73 sqM) Glucose 95 (74-99) mg/dL Calcium 8.8 (8.4-10.2) mg/dL Magnesium 2.0 (1.6-2.3) mg/dL Total Bilirubin 0.8 (0.2-1.3) mg/dL AST 66 H (17-59) U/L ALT 61 H (4-49) U/L Alkaline Phosphatase 83 (38-126) U/L Troponin I 0.028 (0.000-0.034) ng/mL Total Protein 6.5 (6.3-8.2) g/dL Albumin 4.0 (3.5-5.0) g/dL TSH 0.740 (0.465-4.680) mIU/L Urine Opiates Screen (NotDetected) Ur Oxycodone Screen (NotDetected) Urine Methadone Screen (NotDetected) Ur Propoxyphene Screen (NotDetected) Ur Barbiturates Screen (NotDetected) U Tricyclic Antidepress (NotDetected) Ur Phencyclidine Scrn (NotDetected) Ur Amphetamines Screen (NotDetected) U Methamphetamines Scrn (NotDetected) U Benzodiazepines Scrn (NotDetected) Urine Cocaine Screen (NotDetected) U Marijuana (THC) Screen (NotDetected) Critical Care Time Critical Care Time: Yes Total Critical Care Time: 35 Disposition Clinical Impression: New onset a-fib, Syncope and collapse Disposition: ADMITTED IP TO THIS HOSP Referrals: Pranav Bains DO [Primary Care Provider] - 1-2 days Time of Disposition: 18:16
[2022-12-12 15:11] LABS: Basophils # (A) 0.1 k/uL (0-0.2); Basophils % (A) 1 %; Eosinophils # (A) 0.1 k/uL (0-0.7); Eosinophils % (A) 1 %; HCT 46.5 % (39.0-53.0); Lymphocytes # (A) 1.7 k/uL (1.0-4.8); Lymphocytes % (A) 17 %; MCH 30.4 pg (25.0-35.0); MCHC 34.4 g/dL (31.0-37.0); MCV 88.4 fL (80.0-100.0); Mean Platelet Volume 8.4; Monocytes # (A) 0.5 k/uL (0-1.0); Monocytes % (A) 5 %; Neutrophils # (A) 7.3 k/uL (1.3-7.7); Neutrophils % (A) 75 %; Platelet Count 145 k/uL (150-450); RBC 5.26 m/uL (4.30-5.90); RDW 13.8 % (11.5-15.5); WBC 9.7 k/uL (3.8-10.6)
[2022-12-12 15:19] LABS: Partial Thromboplastin Time 24.7 sec (22.0-30.0); Prothrombin Time 10.7 sec (9.0-12.0)
[2022-12-12 15:29] LABS: ALT 61 U/L (4-49); AST 66 U/L (17-59); African American GFR (CKD) >90 (>60 ml/min/1.73 sqM); Alkaline Phosphatase 83 U/L (38-126); Anion Gap 10 mmol/L; Blood Urea Nitrogen 14 mg/dL (9-20); Calcium 8.8 mg/dL (8.4-10.2); Carbon Dioxide 26 mmol/L (22-30); Chloride 103 mmol/L (98-107); Glucose 95 mg/dL (74-99); Non-African American GFR(CKD) 85 (>60 ml/min/1.73 sqM); Potassium 3.8 mmol/L (3.5-5.1); Sodium 139 mmol/L (137-145); Total Bilirubin 0.8 mg/dL (0.2-1.3); Total Protein 6.5 g/dL (6.3-8.2)
[2022-12-12 15:36] LABS: Amphetamine Screen,Urine Not Detected (NotDetected); Barbiturate Screen,Urine Not Detected (NotDetected); Benzodiazepines Screen,Urine Not Detected (NotDetected); Cocaine Screen,Urine Not Detected (NotDetected); Methadone Screen, Urine Not Detected (NotDetected); Opiate Screen,Urine Not Detected (NotDetected); Oxycodone Screen, Urine Not Detected (NotDetected); Phencyclidine Screen,Urine Not Detected (NotDetected); Tricyclic Antidepressant,Urine Not Detected (NotDetected); Urn Cannabinoid Scrn Not Detected (NotDetected)
--- NOTE | 2022-12-12 15:52 | CT ---
EXAMINATION TYPE: CT brain cspine wo con CT DLP: 1929 mGycm, Automated exposure control for dose reduction was used. DATE OF EXAM: 12/12/2022 3:42 PM COMPARISON: None. CLINICAL INDICATION:Male, 57 years old with history of Trauma; fall following syncopal episode TECHNIQUE: Brain: Multiple axial CT images of the brain were obtained without IV contrast. Cspine: Axial CT images from the skull base to the inferior aspect of T2 we obtained without intraven ous contrast. Coronal and sagittal reformatted images were also reviewed. FINDINGS: Brain: Extra-axial spaces: No abnormal extra-axial fluid collections. Ventricular system: Within normal limits Cerebral parenchyma: No acute intraparenchymal hemorrhage or mass effect. The evans-white junction is well differentiated. Cerebellum: Unremarkable. Mass effect: No evidence of midline shift. Intracranial vasculature: unremarkable Soft tissues: Normal. Calvarium/osseous structures: No depressed skull fracture. Paranasal sinuses and mastoid air cells: Clear. Visualized orbits: Orbital contents are intact. Cervical spine: Fracture: None. Osseous structures: Multilevel degenerative disc disease changes with endplate spurring and disc oste ophyte complex's. Vertebral alignment: Within normal limits. Spinal canal/Neural Foramina: Disc osteophyte complexes at C6-C7 with at least mild spinal canal sten osis. No evidence for significant neural foraminal stenosis. Neck soft tissues: Prevertebral soft tissues are within normal limits. Other: The airway is patent. Groundglass opacities within the upper lungs. IMPRESSION: 1. No acute intracranial process. 2. No evidence of cervical spine fracture. 3. Mild multilevel degenerative disc disease. 4. Thrombus opacities in the lung apices correlate for pneumonia versus pulmonary vascular congestio n.
--- NOTE | 2022-12-12 16:07 | XR ---
EXAMINATION TYPE: XR chest 2V DATE OF EXAM: 12/12/2022 3:55 PM COMPARISON: Chest radiographs from 12/12/2022 TECHNIQUE: XR chest 2V Frontal and lateral views of the chest. CLINICAL INDICATION:Male, 57 years old with history of dysrhythmia; FINDINGS: Lungs/Pleura: There is no evidence of pleural effusion, focal consolidation, or pneumothorax. Pulmonary vascularity: Unremarkable. Heart/mediastinum: Cardiomediastinal silhouette is unremarkable. Musculoskeletal: No acute osseous pathology. IMPRESSION: No acute cardiopulmonary disease/process.
[2022-12-12] MEDS ORDERED: HEPARIN SODIUM 1,000 UN/ML (10ML VL) IV ONE (18:17)
[2022-12-12] MEDS ORDERED: HEPARIN SOD,PORK IN 0.45% NACL 25,000 UNIT in 0.45% NACL 1 250ML.BAG IV SCH ×2 (18:30→20:00)
[2022-12-13] MEDS ORDERED: ACETAMINOPHEN TAB 325 MG TAB PO PRN (08:50)
[2022-12-13 08:52] VITALS: RESP 18
[2022-12-13] MEDS ORDERED: METOPROLOL TARTRATE 25 MG TAB PO SCH (09:00)
[2022-12-13] MEDS ORDERED: ASPIRIN 81 MG PO SCH (09:45)
[2022-12-13] MEDS ORDERED: PANTOPRAZOLE 40 MG TABLET PO SCH (10:15)
--- NOTE | 2022-12-13 11:33 | P.CRDCN ---
History of Present Illness History of present illness: HISTORY OF PRESENT ILLNESS: This is a 57-year-old male with a past medical history significant for hypertension. 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 We have been asked to see the patient in consultation for atrial fibrillation. Patient examined at the bedside. Patient states yesterday he was feeling in his normal state of health. He states that he went to the dollar store to get some supplies for work. He states that he began to feel dizzy. He states that he grabbed on to a shelf to balance himself and the next thing he remembers was he was lying on the floor with people around him. He denied having any chest pain or pressure. Denied any shortness of breath. Denied having any palpitations prior to this. The patient was brought to the hospital and found to be in atrial fibrillation with controlled ventricular rate. The patient was started on IV heparin. This morning he is maintaining sinus mechanism with a heart rate in the 70s. Patient denies a history of atrial fibrillation. He denies a history of previous syncopal episodes. * EKG reveals atrial fibrillation with controlled ventricular rate. Repeat EKG reveals sinus mechanism. * Chest xray negative for acute process * Laboratory data: W BC 9.7. Hemoglobin 16.0. Platelet count 145. Sodium 139. Potassium 3.8. BUN 14. Creatinine 0.98. TSH 0.740. * Current home cardiac medications include atenolol 50 mg twice a day REVIEW OF SYSTEMS: At the time of my exam: CONSTITUTIONAL: Denies fever or chills. HEENT: Denies blurred vision, vision changes, or eye pain. Denies hemoptysis CARDIOVASCULAR: Denies chest pain. Denies orthopnea. Denies PND. Denies palpitations RESPIRATORY: Denies shortness of breath. GASTROINTESTINAL: Denies abdominal pain. Denies nausea or vomiting. HEMATOLOGIC: Denies bleeding disorders. GENITOURINARY: Denies any blood in urine. SKIN: Denies pruitis. Denies rash. PHYSICAL EXAM: VITAL SIGNS: Reviewed. GENERAL: Well-developed in no acute distress. HEENT: Head is normocephalic. Pupils are equal, round. Sclerae anicteric. Mucous membranes of the mouth are moist. Neck supple. No JVD or thyromegaly LUNGS: Respirations even and unlabored. Lungs essentially clear to auscultation bilaterally. HEART: Regular rate and rhythm. S1 and S2 heard. ABDOMEN: Soft. Nondistended. Nontender. EXTREMITIES: Normal range of motion. No clubbing or cyanosis. Peripheral pulses intact. No lower extremity edema NEUROLOGIC: Awake and alert. Oriented x 3. ASSESSMENT: Syncope, rule out prolonged conversion pauses New onset paroxysmal atrial fibrillation with controlled ventricular rate, currently maintaining sinus mechanism Hypertension PLAN: Discontinue IV heparin Begin aspirin 81 mg daily Discontinue atenolol. Begin metoprolol tartrate 25 mg twice day Add losartan 25 mg daily for optimal blood pressure control Obtain 2-D echo to assess cardiac structure and function Obtain carotid Doppler Patient to receive 2 week event monitor at the time of discharge Further recommendations pending patient's course Nurse practitioner note has been reviewed by physician. Signing provider agrees with the documented findings, assessment, and plan of care. Past Medical History Past Medical History: Hypertension Additional Past Medical History / Comment(s): arthritis, djd History of Any Multi-Drug Resistant Organisms: None Reported Additional Past Surgical History / Comment(s): lt partial knee& complete right replacement, rt Inguinal Hernia. one upper dental implant. Past Anesthesia/Blood Transfusion Reactions: No Reported Reaction Past Psychological History: No Psychological Hx Reported Additional Psychological History / Comment(s): pt lives with and 3 kids. is independant, drives. works for [employer] in [place]. Smoking Status: Current some day smoker Past Alcohol Use History: Occasional Additional Past Alcohol Use History / Comment(s): started smoking cigars at age 51-somkes occ Past Drug Use History: None Reported - Past Family History Mother Family Medical History: Asthma, Cancer, COPD, GERD/Reflux, Hypertension Additional Family Medical History / Comment(s): diverticulitis, squamous and melaonoma skin cancers Father Family Medical History: Cancer, Hypertension, Prostate Disorder, Renal Disease Additional Family Medical History / Comment(s): prostate cancer, aaa, heart disease Sister(s) Family Medical History: No Reported History Son(s) Family Medical History: No Reported History Daughter(s) Family Medical History: No Reported History Medications and Allergies Home Medications Medication Instructions Recorded Confirmed Type atenoloL [Tenormin] 50 mg PO BID 12/12/22 12/12/22 History Allergies Allergy/AdvReac Type Severity Reaction Status Date / Time No Known Allergies Allergy Verified 12/12/22 19:16 Physical Exam Vitals: Vital Signs Temp Pulse Pulse Resp BP BP Pulse Ox 12/13/22 03:45 66 15 156/79 96 12/12/22 23:57 98.1 F 68 18 159/83 97 12/12/22 23:02 97.9 F 72 17 162/80 98 12/12/22 21:29 64 18 159/80 100 12/12/22 20:31 98.1 F 12/12/22 20:00 62 18 160/80 99 12/12/22 19:00 64 18 164/72 99 12/12/22 18:49 82 18 167/84 96 12/12/22 17:14 64 18 156/80 96 12/12/22 17:00 58 L 18 138/76 97 12/12/22 16:30 68 18 138/78 96 12/12/22 16:00 70 17 140/80 97 12/12/22 15:33 75 13 142/78 12/12/22 15:14 68 18 155/82 96 12/12/22 15:00 71 18 149/80 94 L 12/12/22 14:30 74 18 145/76 96 12/12/22 14:16 80 18 93 L 12/12/22 14:10 97.9 F 72 18 147/66 99 Intake and Output 12/12/22 12/13/22 12/13/22 22:59 06:59 14:59 Intake Total 240 362.105 Balance 240 362.105 Intake: Intake, IV Titration 122.105 Amount Heparin Sod,Pork in 0.45% 122.105 NaCl 25,000 unit In 0.45 % NaCl 1 250ml.bag @ 12 UNITS/KG/HR 16.765 mls/hr IV .[id number] [facility] Rx#: [id number] Oral 240 240 Other: # Voids 2 Weight 139.706 kg 139.8 kg Results 12/12/22 14:54 12/12/22 14:54 Cardiac Enzymes 12/12/22 12/12/22 Range/Units 14:54 14:54 AST 66 H (17-59) U/L Troponin I 0.028 (0.000-0.034) ng/mL Coagulation 12/12/22 12/13/22 Range/Units 14:54 02:14 PT 10.7 (9.0-12.0) sec APTT 24.7 99.0 H (22.0-30.0) sec CBC 12/12/22 Range/Units 14:54 WBC 9.7 (3.8-10.6) k/uL RBC 5.26 (4.30-5.90) m/uL Hgb 16.0 (13.0-17.5) gm/dL Hct 46.5 (39.0-53.0) % Plt Count 145 L (150-450) k/uL Comprehensive Metabolic Panel 12/12/22 Range/Units 14:54 Sodium 139 (137-145) mmol/L Potassium 3.8 (3.5-5.1) mmol/L Chloride 103 (98-107) mmol/L Carbon Dioxide 26 (22-30) mmol/L BUN 14 (9-20) mg/dL Creatinine 0.98 (0.66-1.25) mg/dL Glucose 95 (74-99) mg/dL Calcium 8.8 (8.4-10.2) mg/dL AST 66 H (17-59) U/L ALT 61 H (4-49) U/L Alkaline Phosphatase 83 (38-126) U/L Total Protein 6.5 (6.3-8.2) g/dL Albumin 4.0 (3.5-5.0) g/dL Current Medications Generic Name Dose Route Start Last Admin Trade Name Freq PRN Reason Stop Dose Admin Heparin Sodium/Sodium Chloride 250 mls @ 16.765 mls/hr 12/12/22 20:00 0 12/13/22 04:24 25,000 unit/ Sodium Chloride IV 9 units/kg/hr .[id number] JOSEFINA 12.574 mls/hr Titration Protocol 12 UNITS/KG/HR Metoprolol Tartrate 25 mg 12/13/22 09:00 Metoprolol Tartrate 25 Mg Tab PO BID JOSEFINA Intake and Output 12/12/22 12/13/22 12/13/22 22:59 06:59 14:59 Intake Total 240 362.105 Balance 240 362.105 Intake: Intake, IV Titration 122.105 Amount Heparin Sod,Pork in 0.45% 122.105 NaCl 25,000 unit In 0.45 % NaCl 1 250ml.bag @ 12 UNITS/KG/HR 16.765 mls/hr IV .[id number] JOSEFINA Rx#: [id number] Oral 240 240 Other: # Voids 2 Weight 139.706 kg 139.8 kg 12/12/22 14:54 12/12/22 14:54
[2022-12-13] MEDS ORDERED: LOSARTAN 25 MG TAB PO SCH (11:45)
[2022-12-13 12:09] VITALS: TEMP 98.2
--- NOTE | 2022-12-13 12:59 | CA ---
Transthoracic Echo Report Name: Jean-Claude Kessler Age: 57 Gender: M : 1965 Exam Date: 12/13/2022 09:27 Exam Location: [place] [facility] Ht (in): 71 Wt (lb): 308 Ordering Physician: Tasha Schilling Attending/Referring Phys: [id number], Shakir [employer] Agent Shannan Esqueda [facility] Procedure CPT: Indications: LV function, new onset afib, syncope Cardiac Hx: Technical Quality: Technically difficult study Contrast 1: Lumason Total Dose (mL): 5 Contrast 2: Total Dose (mL): MEASUREMENTS (Male / Female) Normal Values 2D ECHO LV Diastolic Diameter PLAX 5.1 cm 4.2 - 5.9 / 3.9 - 5.3 cm LV Systolic Diameter PLAX 3.1 cm IVS Diastolic Thickness 1.1 cm 0.6 - 1.0 / 0.6 - 0.9 cm LVPW Diastolic Thickness 1.3 cm 0.6 - 1.0 / 0.6 - 0.9 cm LV Relative Wall Thickness 0.5 LVOT Diameter 2.0 cm Ascending Aorta Diameter 4.0 cm M-MODE Aortic Root Diameter MM 2.9 cm LA Systolic Diameter MM 4.4 cm LA Ao Ratio MM 1.5 AV Cusp Separation MM 2.2 cm DOPPLER AV Peak Velocity 162.3 cm/s AV Peak Gradient 10.5 mmHg AV Mean Velocity 128.4 cm/s AV Mean Gradient 7.0 mmHg AV Velocity Time Integral 35.1 cm AI Peak Velocity 399.2 cm/s AI Peak Gradient 63.8 mmHg AI Pressure Half Time 496.8 ms LVOT Peak Velocity 159.6 cm/s LVOT Peak Gradient 10.2 mmHg LVOT Velocity Time Integral 34.5 cm LVOT Stroke Volume 105.6 cm??? LVOT Stroke Volume Index 41.7 ml/m??? LVOT Cardiac Index 2766.4 cm???/min???m??? AV Area Cont Eq vti 3.0 cm??? AV Area Cont Eq pk 3.0 cm??? Mitral E Point Velocity 53.4 cm/s Mitral A Point Velocity 70.3 cm/s Mitral E to A Ratio 0.8 MV Deceleration Time 193.8 ms LV E' Lateral Velocity 9.5 cm/s Mitral E to LV E' Lateral Ratio 5.6 LV E' Septal Velocity 7.9 cm/s Mitral E to LV E' Septal Ratio 6.8 TR Peak Velocity 205.9 cm/s TR Peak Gradient 17.0 mmHg Right Atrial Pressure 8.0 mmHg Pulmonary Artery Systolic Pressu 25.0 mmHg Right Ventricular Systolic Press 25.0 mmHg FINDINGS Left Ventricle Mildly increased left ventricular wall thickness. Left ventricular cavity size normal. No obvious regional wall motion abnormalities. Left ventricular ejection fraction is estimated at 55-60%. Right Ventricle Normal right ventricular size and function. Right Atrium Right atrium not well visualized. Left Atrium Mild left atrial dilatation. Mitral Valve Structurally normal mitral valve. Mild mitral regurgitation. Aortic Valve Trileaflet aortic valve. Mild aortic regurgitation. Tricuspid Valve Structurally normal tricuspid valve. Trace tricuspid regurgitation. Pulmonic Valve Structurally normal pulmonic valve. Trace pulmonic regurgitation. Pericardium No pericardial effusion. Aorta Normal size aortic root. Mildly dilated proximal ascending aorta (tube). CONCLUSIONS 1. Normal left ventricular size and function 2. Mild aortic and mitral regurgitation Previewed by: Dr. Catracho Cheng MD (Electronically Signed) Final Date: 13 December 2022 12:58
[2022-12-13 15:20] VITALS: BP 173/84; PULSE 65
--- NOTE | 2022-12-13 16:25 | P.HPIM ---
History of Present Illness H&P Date: 12/13/22 This is a 57 year old male with medical history of hypertension maintained on atenolol outpatient, no prior cardiac history or arrhythmia. Patient was at the [employer] store and when he reached the counter he felt funny and passed out. He did hit his head. Cervical and neck spine CT on initial work up is negative for acute fracture or hemorrhage there was report of "thrombus opacities in the lung apices correlate for pneumonia versus pulmonary vascular congestion" F/U chest xray is negative for acute findings. EKG on admission shows atrial fibrillation heart rate of 80s. Patient denies palpitations, denies chest pain, no shortness of breath. No dizziness or lighthededness. Patient was admitted to the hospital under medicine with cardiology consultation and started on heparin gtt. REVIEW OF SYSTEMS: CONSTITUTIONAL: No fever, no malaise, no fatigue. HEENT: No recent visual problems or hearing problems. Denied any sore throat. CARDIOVASCULAR: No chest pain, orthopnea, PND, no palpitations, no syncope. PULMONARY: No shortness of breath, no cough, no hemoptysis. GASTROINTESTINAL: No diarrhea, no nausea, no vomiting, no abdominal pain. NEUROLOGICAL: No headaches, no weakness, no numbness. HEMATOLOGICAL: Denies any bleeding or petechiae. GENITOURINARY: Denies any burning micturition, frequency, or urgency. MUSCULOSKELETAL/RHEUMATOLOGICAL: Denies any joint pain, swelling, or any muscle pain. ENDOCRINE: Denies any polyuria or polydipsia. The rest of the 14-point review of systems is negative. PHYSICAL EXAMINATION: GENERAL: The patient is alert and oriented x3, not in any acute distress. Well developed, well nourished. HEENT: Pupils are round and equally reacting to light. EOMI. No scleral icterus. No conjunctival pallor. Normocephalic, atraumatic. No pharyngeal erythema. No thyromegaly. CARDIOVASCULAR: S1 and S2 present. No murmurs, rubs, or gallops. PULMONARY: Chest is clear to auscultation, no wheezing or crackles. ABDOMEN: Soft, nontender, nondistended, normoactive bowel sounds. No palpable organomegaly. MUSCULOSKELETAL: No joint swelling or deformity. EXTREMITIES: No cyanosis, clubbing, or pedal edema. NEUROLOGICAL: Gross neurological examination did not reveal any focal deficits. SKIN: No rashes. Assessment Paroxysmal atrial fibrillation with controlled ventricular rate Syncopal episode due to above Hypertension Elevated LFTs Hx degenerative disc disease Daily tobacco use GI prophylaxis DVT prophylaxis on heparin gtt Plan Continue heparin gtt echocardiogram pending , patient will be started on aspirin 81 mg daily. Patient has been started on metoprolol with conversion to sinus rhythm. Pending carotid doppler patient can discharge home afterwards F/U with cardiology outpatient The impression and plan of care has been dictated by Tatianna Garcia, Nurse Practitioner as directed. Dr. Lorin MD I have performed a history and physical examination and medical decision making of this patient, discussed the same with the dictator, and agree with the dictators assessment and plan as written, documented as a scribe. Based on total visit time, I have performed more than 50% of this visit. Past Medical History Past Medical History: Hypertension Additional Past Medical History / Comment(s): arthritis, djd History of Any Multi-Drug Resistant Organisms: None Reported Additional Past Surgical History / Comment(s): lt partial knee& complete right replacement, rt Inguinal Hernia. one upper dental implant. Past Anesthesia/Blood Transfusion Reactions: No Reported Reaction Past Psychological History: No Psychological Hx Reported Additional Psychological History / Comment(s): pt lives with and 3 kids. is independant, drives. works for [employer] in [place]. Smoking Status: Current some day smoker Past Alcohol Use History: Occasional Additional Past Alcohol Use History / Comment(s): started smoking cigars at age 51-somkes occ Past Drug Use History: None Reported - Past Family History Mother Family Medical History: Asthma, Cancer, COPD, GERD/Reflux, Hypertension Additional Family Medical History / Comment(s): diverticulitis, squamous and melaonoma skin cancers Father Family Medical History: Cancer, Hypertension, Prostate Disorder, Renal Disease Additional Family Medical History / Comment(s): prostate cancer, aaa, heart dis ease Sister(s) Family Medical History: No Reported History Son(s) Family Medical History: No Reported History Daughter(s) Family Medical History: No Reported History Medications and Allergies Home Medications Medication Instructions Recorded Confirmed Type Aspirin 81 mg PO DAILY #30 tab 12/13/22 Rx Losartan [Cozaar] 25 mg PO DAILY #30 tab 12/13/22 Rx Metoprolol Tartrate [Lopressor] 25 mg PO BID #60 tab 12/13/22 Rx Pantoprazole [Protonix] 40 mg PO AC-BRKFST #30 tab 12/13/22 Rx Allergies Allergy/AdvReac Type Severity Reaction Status Date / Time No Known Allergies Allergy Verified 12/12/22 19:16 Physical Exam Vitals: Vital Signs Temp Pulse Pulse Resp BP BP Pulse Ox 12/13/22 08:00 98.4 F 97 18 181/94 97 12/13/22 03:45 66 15 156/79 96 12/12/22 23:57 98.1 F 68 18 159/83 97 12/12/22 23:02 97.9 F 72 17 162/80 98 12/12/22 21:29 64 18 159/80 100 12/12/22 20:31 98.1 F 12/12/22 20:00 62 18 160/80 99 12/12/22 19:00 64 18 164/72 99 12/12/22 18:49 82 18 167/84 96 12/12/22 17:14 64 18 156/80 96 12/12/22 17:00 58 L 18 138/76 97 12/12/22 16:30 68 18 138/78 96 12/12/22 16:00 70 17 140/80 97 12/12/22 15:33 75 13 142/78 12/12/22 15:14 68 18 155/82 96 12/12/22 15:00 71 18 149/80 94 L 12/12/22 14:30 74 18 145/76 96 12/12/22 14:16 80 18 93 L 12/12/22 14:10 97.9 F 72 18 147/66 99 Intake and Output 12/12/22 12/13/22 12/13/22 22:59 06:59 14:59 Intake Total 240 362.105 Balance 240 362.105 Intake: Intake, IV Titration 122.105 Amount Heparin Sod,Pork in 0.45% 122.105 NaCl 25,000 unit In 0.45 % NaCl 1 250ml.bag @ 12 UNITS/KG/HR 16.765 mls/hr IV .[id number] [facility] Rx#: [id number] Oral 240 240 Other: # Voids 2 Weight 139.706 kg 139.8 kg Results CBC & Chem 7: 12/12/22 14:54 12/12/22 14:54 Labs: Abnormal Lab Results - Last 24 Hours (Table) 12/12/22 12/12/22 12/13/22 Range/Units 14:54 14:54 02:14 Plt Count 145 L (150-450) k/uL APTT 99.0 H (22.0-30.0) sec AST 66 H (17-59) U/L ALT 61 H (4-49) U/L Thrombosis Risk Factor Assmnt - Choose All That Apply Any of the Below Risk Factors Present?: Yes Each Factor Represents 1 point: Age 41-60 years Other Risk Factors: No Other congenital or acquired thrombophilia - If yes, enter type in comment: No Thrombosis Risk Factor Assessment Total Risk Factor Score: 1 Thrombosis Risk Factor Assessment Level: Low Risk Assessment and Plan Time with Patient: Less than 30
--- NOTE | 2022-12-13 19:48 | P.CNNES ---
History of Present Illness Consult date: 12/13/22 Requesting physician: Ramses Carter Reason for Consult: Syncope History of Present Illness: Patient is a 57-year-old right-handed male with history of hypertension, was brought to the hospital by ambulance yesterday at 2:06 PM. EMS flow sheet not available in the chart. As per patient, he was at [employer] store when he was standing, suddenly felt dizzy, lightheaded with some vertigo. He wanted to walk, but he noticed that his right leg would not move. It felt like "". Patient then apparently passed out, and woke up to one of the customers and one of the worker asking him if he was all right. He did fall to the floor with the syncope. Apparently he was not out for too long period of time, as we 2 people in front. They called the ambulance, and patient remembers EMS arriving, and taking him to the hospital. Patient denies any associated slurred speech, facial droop, any focal weakness of the arms or any visual disturbance. Vital signs on arrival blood pressure 147/66, pulse rate 72, temperature 97.9. Computed tomography scan of the head revealed no acute intracranial process. I personally reviewed CT head, agree with the findings. CT of the cervical spine showed no evidence of cervical spine fracture. Mild multilevel degenerative disc disease. Some opacities in the lung apices correlate for pneumonia versus pulmonary vascular congestion. Chest x-ray showed no acute cardiopulmonary process. EKG shows new onset atrial fibrillation. Heart rate 80. Patient at home takes atenolol 50 mg twice a day. Does not take any antiplatelet medication. Patient has hypertension, denies diabetes. He smokes one to 2 cigars per day for last 2 years. Never smoked tobacco. Denies any alcohol use. Patient denies any history of syncope in the past. At present patient feels back to baseline. He feels fine. No headache. Review of Systems Constitutional: Reports weight gain, Denies chills, Denies fever Eyes: denies blurred vision, denies diplopia, denies pain Ears: deny: decreased hearing, ear discharge Ears, nose, mouth and throat: Reports headache (For last couple weeks, almost daily. No previous history of headaches), Denies sore throat Cardiovascular: Denies chest pain, Denies palpitations, Denies shortness of breath Respiratory: Reports cough with sputum (Since Covid), Denies excessive sputum Gastrointestinal: Denies abdominal pain, Denies diarrhea, Denies nausea, Denies vomiting Musculoskeletal: Denies low back pain, Denies myalgias, Denies neck pain Integumentary: Denies pruritus, Denies rash Neurological: Reports as per HPI Psychiatric: Denies anxiety, Denies depression Endocrine: Reports fatigue, Reports weight change Hematologic/Lymphatic: Denies easy bleeding, Denies easy bruising Past Medical History Past Medical History: Hypertension Additional Past Medical History / Comment(s): arthritis, djd History of Any Multi-Drug Resistant Organisms: None Reported Additional Past Surgical History / Comment(s): lt partial knee& complete right replacement, rt Inguinal Hernia. one upper dental implant. Past Anesthesia/Blood Transfusion Reactions: No Reported Reaction Past Psychological History: No Psychological Hx Reported Additional Psychological History / Comment(s): pt lives with and 3 kids. is independant, drives. works for [employer] in [place]. Smoking Status: Current some day smoker Past Alcohol Use History: Occasional Additional Past Alcohol Use History / Comment(s): started smoking cigars at age 51-somkes occ Past Drug Use History: None Reported - Past Family History Mother Family Medical History: Asthma, Cancer, COPD, GERD/Reflux, Hypertension Additional Family Medical History / Comment(s): diverticulitis, squamous and melaonoma skin cancers Father Family Medical History: Cancer, Hypertension, Prostate Disorder, Renal Disease Additional Family Medical History / Comment(s): prostate cancer, aaa, heart disease Sister(s) Family Medical History: No Reported History Son(s) Family Medical History: No Reported History Daughter(s) Family Medical History: No Reported History Medications and Allergies Home Medications Medication Instructions Recorded Confirmed Type Aspirin 81 mg PO DAILY #30 tab 12/13/22 Rx Losartan [Cozaar] 25 mg PO DAILY #30 tab 12/13/22 Rx Metoprolol Tartrate [Lopressor] 25 mg PO BID #60 tab 12/13/22 Rx Pantoprazole [Protonix] 40 mg PO AC-BRKFST #30 tab 12/13/22 Rx Allergies Allergy/AdvReac Type Severity Reaction Status Date / Time No Known Allergies Allergy Verified 12/12/22 19:16 Physical Examination - Vital Signs Vital Signs: Vital Signs Temp Pulse Pulse Resp BP BP Pulse Ox 12/13/22 12:00 98.2 F 68 18 172/82 95 12/13/22 08:00 98.4 F 97 18 181/94 97 12/13/22 03:45 66 15 156/79 96 12/12/22 23:57 98.1 F 68 18 159/83 97 12/12/22 23:02 97.9 F 72 17 162/80 98 12/12/22 21:29 64 18 159/80 100 12/12/22 20:31 98.1 F 12/12/22 20:00 62 18 160/80 99 12/12/22 19:00 64 18 164/72 99 12/12/22 18:49 82 18 167/84 96 12/12/22 17:14 64 18 156/80 96 12/12/22 17:00 58 L 18 138/76 97 12/12/22 16:30 68 18 138/78 96 12/12/22 16:00 70 17 140/80 97 12/12/22 15:33 75 13 142/78 12/12/22 15:14 68 18 155/82 96 12/12/22 15:00 71 18 149/80 94 L 12/12/22 14:30 74 18 145/76 96 12/12/22 14:16 80 18 93 L Intake and Output 12/12/22 12/13/22 12/13/22 22:59 06:59 14:59 Intake Total 240 362.105 110 Balance 240 362.105 110 Intake: Intake, IV Titration 122.105 Amount Heparin Sod,Pork in 0.45% 122.105 NaCl 25,000 unit In 0.45 % NaCl 1 250ml.bag @ 12 UNITS/KG/HR 16.765 mls/hr IV .[id number] [facility] Rx#: [id number] Oral 240 240 110 Other: # Voids 2 Weight 139.706 kg 139.8 kg Patient is a middle aged male, in no acute distress. Patient is alert awake oriented to time place and person. Speech and language functions are normal. Patient can name and repeat very well. No aphasia or dysarthria. Attention, concentration and fund of knowledge is adequate. On cranial nerve examination, pupils are equal, round and reacting to light, visual izquierdo are full on confrontation, with no neglect on double simultaneous stimulation. Extraocular muscles are intact with no nystagmus. Face is symmetric, tongue protrudes to the midline. Palatal elevation and sensation normal, hearing and shoulder shrug normal, facial sensation normal. On muscle strength testing, there is no pronator drift and the strength is normal in arms and legs distally and proximally. Deep tendon reflexes are symmetric and trace at the biceps, trace brachioradialis, 1 at the knees, 2 at the ankles and plantars downgoing bilaterally. Sensory to touch is equal with no neglect on double simultaneous stimulation. Cerebellar function showed no ataxia for upszgk-va-uutu testing. No dysdiadochokinesia. No ataxia for rgqd-hg-[id number] testing on either side. Tone and bulk of muscles normal. Gait deferred.. On general examination, there is no carotid bruit or murmur, S1-S2 audible. Chest is clear on consultation. Abdomen is soft nontender. No organomegaly, bowel sounds present. Peripheral pulses are present. No edema. Results - Laboratory Findings CBC and BMP: 12/12/22 14:54 12/12/22 14:54 Abnormal Lab Findings: Abnormal Labs 12/12/22 12/12/22 12/13/22 14:54 14:54 02:14 Plt Count 145 L APTT 99.0 H AST 66 H ALT 61 H 12/13/22 10:20 Plt Count APTT 32.9 H AST ALT Assessment and Plan Assessment: * Syncope, most likely related to arrhythmia. * New onset atrial fibrillation, now back in sinus rhythm. * Transient right leg weakness, rule out TIA. Symptoms resolved. Current NIH stroke scale is 0. * Hypertension * Obesity Plan: * Patient has been seen by cardiology. Patient was initially placed on heparin, but now this has been discontinued. Per cardiology, patient not a candidate for anticoagulation, as he has no significant risk factors, and atrial fibrillation was transient. Patient has been started on aspirin 81 mg daily indefinitely. Patient was not on any antiplatelet medication at home. * Patient to undergo 30 day event monitor to evaluate for paroxysmal atrial fibrillation. * 2-D echo revealed normal left ventricular size and systolic function with EF 55-60%. No obvious regional wall motion abnormalities. Left atrium mildly dilated. Mild AR, MR. * Carotid Doppler revealed no significant stenosis in either ICA. Antegrade flow in both vertebral arteries. * Hemoglobin A1c 5.6 on 09/06/2022. TFTs normal. * Lipid panel with cholesterol 138, LDL 72, HDL 40 and triglycerides 124. All normal. * Neurologically, no other workup indicated. Need for anticoagulation versus antiplatelet medication as per cardiology recommendations. * Thank you for the consult.
--- NOTE | 2022-12-13 20:00 | P.DS ---
Providers Date of admission: 12/12/22 18:18 Attending physician: Kodi Beasley Consults: 12/12/22 18:18 Consult Physician Urgent Consulting Provider: [facility] Consult Reason/Comments: New-onset A. fib, syncope Do you want consulting provider notified?: Yes Consult Physician Urgent Consulting Provider: Db Elkins Consult Reason/Comments: Syncope Do you want consulting provider notified?: Yes Primary care physician: [facility] Course: Final Diagnosis Paroxysmal atrial fibrillation with controlled ventricular rate Syncopal episode due to above Hypertension Elevated LFTs Transient right leg weakness rule out TIA all symptoms have resolved and NIH score is 0. Hx degenerative disc disease Daily tobacco use Discharge Disposition Patient is stable for discharge home. Recommended to follow up with cardiology in the office on discharge as well as PCP. Patient has 30 day event monitor placed prior to discharge to monitor for underlying cardiac arrhythmia. Isacc-va sc score low and cardiology felt patient is not a candidate for anticoagulation therapy and has been started on aspirin 81 mg daily indefinitely. Discussed tobacco cessation with patient. Patient needs fasting lipid panel done on discharge. Hospital Course This is a 57 year old male with medical history of hypertension maintained on atenolol outpatient, no prior cardiac history or arrhythmia. Patient was at the [employer] store and when he reached the counter he felt funny and passed out. He did hit his head. Cervical and neck spine CT on initial work up is negative for acute fracture or hemorrhage there was report of "thrombus opacities in the lung apices correlate for pneumonia versus pulmonary vascular congestion" F/U chest xray is negative for acute findings. EKG on admission shows atrial fibrillation heart rate of 80s. Patient denies palpitations, denies chest pain, no shortness of breath. No dizziness or lighthededness. Patient was admitted to the hospital under medicine with cardiology consultation and started on heparin gtt. Neurology has also been consulted. Echocardiogram reveals normal LV size and function, mild aortic and mitral regurgitation. Discussed with cardiology okay for discharge. Patient had carotid doppler done and follow up in the office outpatient to discuss results. Neurology evaluated the patient and recommending fasting lipid panel and carotid doppler has been done to complete a stroke work up and evaluation of syncopal episode. Patient has 30 day event monitor in place and will follow up with cardiology in 2 weeks. Syncopal episodes is felt due to the new onset atrial fibrillation. Patient is now back in normal sinus rhythm. Currently denies chest pain, no shortness of breath, no nausea vomiting or diarrhea no focal neurological deficits. Lungs are clear S1 S2 auscultated. Patient has been cleared for discharge. Please see medication reconciliation for a list of current medication. Thank you for allowing us to participate in the care of this patient. The impression and plan of care has been dictated by Tatianna Garcia, Nurse Practitioner as directed. Dr. Lorin MD I have performed a history and physical examination and medical decision making of this patient, discussed the same with the dictator, and agree with the dictators assessment and plan as written, documented as a scribe. Based on total visit time, I have performed more than 50% of this visit. Patient Condition at Discharge: Stable Plan - Discharge Summary Discharge Rx Participant: No New Discharge Prescriptions: New Metoprolol Tartrate [Lopressor] 25 mg PO BID #60 tab Pantoprazole [Protonix] 40 mg PO AC-BRKFST #30 tab Aspirin 81 mg PO DAILY #30 tab Losartan [Cozaar] 25 mg PO DAILY #30 tab Discontinued atenoloL [Tenormin] 50 mg PO BID Discharge Medication List Aspirin 81 mg PO DAILY #30 tab 12/13/22 [Rx] Losartan [Cozaar] 25 mg PO DAILY #30 tab 12/13/22 [Rx] Metoprolol Tartrate [Lopressor] 25 mg PO BID #60 tab 12/13/22 [Rx] Pantoprazole [Protonix] 40 mg PO AC-BRKFST #30 tab 12/13/22 [Rx] Follow up Appointment(s)/Referral(s): Traci Robertson MD [STAFF PHYSICIAN] - 3 Weeks Pranav Bains DO [Primary Care Provider] - 1-2 days Patient Instructions/Handouts: A-fib (Atrial Fibrillation) (DC), Syncope (DC) Activity/Diet/Wound Care/Special Instructions: Follow up with cardiology in 1 week Monitor blood pressure daily in the evening and keep log for follow up on discharge Discharge Disposition: HOME SELF-CARE
--- NOTE | 2022-12-14 00:43 | US ---
EXAMINATION TYPE: US carotid duplex BILAT DATE OF EXAM: 12/13/2022 COMPARISON: NONE CLINICAL INDICATION: Male, 57 years old with history of syncope; Syncope. Hypertension, smoker. TECHNIQUE: Carotid duplex ultrasound examination. Indirect Doppler criteria was utilized. FINDINGS: EXAM MEASUREMENTS: RIGHT: Peak Systolic Velocity (PSV) cm/sec ----- Right CCA: 95.2 ----- Right ICA: 108.4 ----- Right ECA: 122.1 ICA/CCA ratio: 1.1 RIGHT: End Diastole cm/sec ----- Right CCA: 18.2 ----- Right ICA: 23.7 ----- Right ECA: 12.3 LEFT: Peak Systolic Velocity (PSV) cm/sec ----- Left CCA: 86.2 ----- Left ICA: 106.2 ----- Left ECA: 100.4 ICA/CCA ratio: 1.2 LEFT: End Diastole cm/sec ----- Left CCA: 20.2 ----- Left ICA: 29.2 ----- Left ECA: 13.7 VERTEBRALS (direction of flow): Right Vertebral: Antegrade Left Vertebral: Antegrade Rhythm: Normal SCREEN PRINTING CLOTH SPREADER NOTES: No elevated velocities at this time. Intimal thickening seen bilaterally. IMPRESSION: 1. No significant flow-limiting stenosis based on velocities bilateral carotid bifurcations. Criteria for Assigning % of Stenosis / Diameter reduction (Estimation based on the indirect measurements of the internal carotid artery velocities (ICA PSV). 1. Normal (no stenosis)=ICA PSV < 125 cm/s: ratio < 2.0: ICA EDV<40 cm/s. 2. Less than 50% stenosis=ICA PSV < 125 cm/s: ratio < 2.0: ICA EDV<40 cm/s. 3. 50 to 69% stenosis=ICA PSV of 125 to 230 cm/s: ration 2.0 ? 4.0: ICA EDV 40-100 cm/s. 4. Greater than 70% stenosis to near occlusion= ICA PSV > 230 cm/s: ratio > 4.0: ICA EDV > 100 cm/s. 5. Near occlusion= ICA PSV velocities may be low or undetectable: variable ratio and ICA EDV. 6. Total occlusion=unable to detect flow.
[2022-12-14 04:45] LABS: Chol/HDL Ratio 3.37 Ratio; LDL Cholesterol,Calculated 72.3 mg/dL (0.0-131.0)
== END 2022-12-13 16:47 | disposition home or self-care (01) ==
LOC: EC 14:06 → INTOOBSV 18:18 → 3SCARD 18:18
PROVIDERS: ADMIT Hospitalist; ATTEND Hospitalist
DX: I48.0 Paroxysmal atrial fibrillation (principal); M50.30 Other cervical disc degeneration, unspecified cervical region; M25.78 Osteophyte, vertebrae; I11.9 Hypertensive heart disease without heart failure; R79.89 Other specified abnormal findings of blood chemistry; I08.3 Combined rheumatic disorders of mitral, aortic and tricuspid valves; I37.1 Nonrheumatic pulmonary valve insufficiency; K21.9 Gastro-esophageal reflux disease without esophagitis; F17.290 Nicotine dependence, other tobacco product, uncomplicated; E66.9 Obesity, unspecified; Z79.899 Other long term (current) drug therapy; Z82.49 Family history of ischemic heart disease and other diseases of the circulatory system; Z96.653 Presence of artificial knee joint, bilateral; Z82.5 Family history of asthma and other chronic lower respiratory diseases; Z80.8 Family history of malignant neoplasm of other organs or systems; Z80.42 Family history of malignant neoplasm of prostate; Z79.82 Long term (current) use of aspirin; Z68.41 Body mass index [BMI] 40.0-44.9, adult
CPT/HCPCS: 96366 ×3; 96365; 99291; 36415; 93005; 93306; 93270; 84439; 80061; 80053; 83735; 84443; 84484; 85025; 85610; 85730 ×2; 80306; 71046; 93880; 72125; 70450; G0378 ×2; J1644 ×2; Q9950

== ENCOUNTER 2023-05-15 06:19 | Day surgery (SDC) | payer BC ==
[~2023-05-15 06:19] MED LIST: SODIUM CHLORIDE 0.9% 1,000 ML IV SCH
[2023-05-15] MEDS ORDERED: SODIUM CHLORIDE 0.9% 1,000 ML IV ONE (07:03)
[2023-05-15 07:28] VITALS: BP 173/84; PULSE 78; RESP 16; TEMP 98.2
[2023-05-15] MEDS ORDERED: LIDOCAINE 1% INJ 10MG/ML (20 ML MDV) SQ ONE (08:41)
--- NOTE | 2023-05-15 11:37 | P.EPPROC ---
- EP Procedure Note Electrophysiology Procedure Note: Loop monitor implant Primary physicians: Refinery Operator Helper: Dr. Mejia Indication: Syncope and presyncope along with recurrent palpitations Patient was brought to the EP lab in a fasting state. Written informed consent was obtained prior to the procedure. The left pectoral area was prepped and draped per protocol. Intravenous antibiotic was administered preoperatively. A subcutaneous Loop monitor was implanted successfully and the wound was closed per protocol. The device was programmed to detect significant debbie- arrhythmic and tachy-arrhythmic events, per protocol. Device and programming details: Syncope protocol
== END 2023-05-15 09:37 | disposition home or self-care (01) ==
LOC: CATHEP 06:19
PROVIDERS: ATTEND Internal Medicine Clinical Cardiac Electrophysiology
DX: I48.0 Paroxysmal atrial fibrillation (principal); I10 Essential (primary) hypertension; Z79.82 Long term (current) use of aspirin; Z79.899 Other long term (current) drug therapy
CPT/HCPCS: 33285; C1764; J0690; J2001